=== PATIENT | male | born 1995 | race Caucasian/White ===

== ENCOUNTER 2021-12-14 09:55 | Outpatient (CLI) | payer OTHER, SELFPAY ==
--- NOTE | ~2021-12-14 | MR_ITS ---
EXAMINATION: MR wrist LT wo con DATE: 12/14/2021 10:59 INDICATION: Ulnar-sided left wrist pain TECHNIQUE: Magnetic resonance imaging (MRI) of the left wrist was performed without intravenous contr ast. Sequences performed include axial PD-weighted FSE and PD-weighted FS FSE, coronal PD-weighted FS FSE and T1-weighted SE, and sagittal PD-weighted FS FSE and PD-weighted FSE. COMPARISON: None FINDINGS: Intrinsic ligaments: The scapholunate and lunotriquetral ligaments are normal. Triangular fibrocartilage complex (TFCC): There is a small oblique tear at the radial side of the central fibrocartilaginous disc of the triang ular fibrocartilage complex. The foveal and styloid attachments as well as the dorsal and volar radio ulnar ligaments are normal. The ulnar collateral ligament, ulnotriquetral ligament and meniscal homol ogue are normal. The extensor carpi ulnaris tendon sheath is normal. Extensor wrist: Extensor tendons of the wrist are normal. No tenosynovitis. Flexor wrist: The flexor tendons of the wrist are normal. No abnormality in the carpal tunnel with normal median n erve. Guyon's canal: Guyon's canal including the ulnar nerve and artery are normal. Bones/other: Marrow edema throughout the hamate with nondisplaced fracture extending in a coronal plane across the base of the hook of the hamate. Alignment remains essentially anatomic. Otherwise normal marrow sign al throughout with no other fractures or pathologic marrow replacing process. Mild osteoarthritis at the distal radioulnar joint. Remaining joint spaces appear relatively preserved. IMPRESSION: 1. Nondisplaced fracture across the base of the hook of the hamate. 2. Small tear at the radial side of the central fibrocartilaginous disc of the triangular fibrocartil age complex which appears otherwise normal. Reviewed, dictated and finalized at location A. IMPRESSION: 1. Nondisplaced fracture across the base of the hook of the hamate. 2. Small tear at the radial side of the central fibrocartilaginous disc of the triangular fibrocartilage complex which appears otherwise normal.
== END 2021-12-14 09:56 | disposition home or self-care (01) ==
PROVIDERS: PCP Family Medicine; Visit Provider Plastic Surgery
DX: S62.155A Nondisplaced fracture of hook process of hamate [unciform] bone, left wrist, initial encounter for closed fracture (principal); X58.XXXA Exposure to other specified factors, initial encounter
CPT/HCPCS: 73221

== ENCOUNTER 2022-01-13 10:06 | Outpatient (CLI) | payer OTHER, SELFPAY ==
--- NOTE | 2022-01-13 11:30 | NEURO_ITS ---
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 # No Carpal Tunnel Syndrome or ulnar neuropathy. # Normal needle/EMG exam. # Clinical correlation recommended. Motor Nerve Conduction Upper Extremities Median Nerve Conduction Velocity (m/sec) Terminal Latency (msec) Response Voltage(mV) Elbow-Wrist Wrist Elbow Wrist Right 56 2.9 4 7 Left 60 3.0 6 3 Ulnar Nerve Conduction Velocity (m/sec) Terminal Latency (msec) Response Voltage(mV) Above Elbow Below Elbow Wrist Above Elbow Below Elbow Wrist Right 60 2.4 8 10 Left 60 2.6 5 6 F-Wave Latency Median (ms) Ulnar (ms) Right 28.4 27.8 Left 27.9 27.8 Sensory Nerve Conduction Upper Extremities Median Nerve Stimulation Terminal Latency (msec) Wrist/Digit Response Voltage (uV) Wrist Right 2.9/3.0 82/57 Left 2.7/2.7 61/58 Ulnar Nerve Stimulation Terminal Latency (msec) Wrist/Digit Response Voltage (uV) Wrist Right 2.3 65 Left 2.5 70 Radial Nerve Terminal Latency (msec) Response Voltage(mV) Right 2.1 22 Left 2.0 16 Left Right Muscles Examined Fibrillation Fasciculation Scarcity Voltage Duration Left Right Left Right Left Right Left Right Left Right Deltoid Biceps X X Brachioradialis Triceps X X Pronator Teres X X Ext Indicis X X Ext Digitorum X X Abd Poll Brev X X 1st Dorsal Interosseus Paraspinals MTDD
== END 2022-01-13 10:07 | disposition home or self-care (01) ==
LOC: ANHNEURO 10:07
PROVIDERS: PCP Family Medicine; Visit Provider Plastic Surgery
DX: R20.2 Paresthesia of skin (principal)
CPT/HCPCS: 95886; 95911

== ENCOUNTER 2024-11-19 09:47 | Outpatient (CLI) | payer OTHER, SELFPAY ==
--- NOTE | 2024-11-19 10:20 | NEURO_ITS ---
Impression: # Non- diabetic complains of pain in hands. 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 # Right Ulnar Neuropathy across the elbow. # No Carpal Tunnel Syndrome. # Normal Needle/ EMG exam. Nerve Conduction Studies ?Stim Site NR Peak (ms) P-T Amp (?V) Site1 Site2 Delta-P (ms) Dist (cm) Herminio (m/s) Left Median Anti Sensory (2-3nd Digit) Wrist ? 2.7 21.1 Wrist 2-3nd Digit 2.7 14.0 52 Wrist ? 2.8 23.6 Wrist 2-3nd Digit 2.7 14.0 52 Right Median Anti Sensory (2-3nd Digit) Wrist ? 3.1 19.5 Wrist 2-3nd Digit 3.1 14.0 45 Wrist ? 3.0 19.3 Wrist 2-3nd Digit 3.1 14.0 45 Left Radial Anti Sensory (Base 1st Digit) Wrist ? 1.8 18.9 Wrist Base 1st Digit 1.8 0.0 Right Radial Anti Sensory (Base 1st Digit) Wrist ? 2.3 17.1 Wrist Base 1st Digit 2.3 0.0 Left Ulnar Anti Sensory (5th Digit) Wrist ? 2.4 20.3 Wrist 5th Digit 2.4 14.0 58 Right Ulnar Anti Sensory (5th Digit) Wrist ? 2.3 18.6 Wrist 5th Digit 2.3 14.0 61 ?Stim Site NR Onset (ms) O-P Amp (mV) Site1 Site2 Delta-0 (ms) Dist (cm) Herminio (m/s) Left Median Motor (Abd Poll Brev) Wrist ? 2.7 1.7 Elbow Wrist 5.5 29.0 53 Elbow ? 8.2 5.4 Right Median Motor (Abd Poll Brev) Wrist ? 2.7 2.5 Elbow Wrist 5.1 27.0 53 Elbow ? 7.8 5.2 Left Ulnar Motor (Abd Dig Minimi) Wrist ? 2.2 7.8 A Elbow Wrist 5.0 30.0 60 A Elbow ? 7.2 6.6 B Elbow Wrist 4.0 24.0 60 B Elbow ? 6.2 6.6 Right Ulnar Motor (Abd Dig Minimi) Wrist ? 2.0 6.8 A Elbow Wrist 5.2 27.0 52 A Elbow ? 7.2 5.6 B Elbow Wrist 3.9 21.0 54 B Elbow ? 5.9 4.6 F Wave Studies ?NR F-Lat (ms) L-R F-Lat (ms) Left Median (Mrkrs) (Abd Poll Brev) ? 28.46 0.61 Right Median (Mrkrs) (Abd Poll Brev) ? 29.07 0.61 Left Ulnar (Mrkrs) (Abd Dig Min) ? 27.96 0.46 Right Ulnar (Mrkrs) (Abd Dig Min) ? 27.50 0.46 Electromyography ?Side Muscle Nerve Root Ins Act Fibs Amp Dur Recrt Comment Right 1stDorInt Ulnar C8-T1 Nml Nml Nml Nml Nml Right Ext Indicis Radial (Post Int) C7-8 Nml Nml Nml Nml Nml Right Ext Digitorum Radial (Post Int) C7-8 Nml Nml Nml Nml Nml Right BrachioRad Radial C5-6 Nml Nml Nml Nml Nml Right PronatorTeres Median C6-7 Nml Nml Nml Nml Nml Right Abd Poll Brev Median C8-T1 Nml Nml Nml Nml Nml Right ABD Dig Min Ulnar C8-T1 Nml Nml Nml Nml Nml Right FlexPolLong Median (Ant Int) C7-8 Nml Nml Nml Nml Nml Right Abd Poll Long Radial (Post Int) C7-8 Nml Nml Nml Nml Nml Left 1stDorInt Ulnar C8-T1 Nml Nml Nml Nml Nml Left Ext Indicis Radial (Post Int) C7-8 Nml Nml Nml Nml Nml Left Ext Digitorum Radial (Post Int) C7-8 Nml Nml Nml Nml Nml Left BrachioRad Radial C5-6 Nml Nml Nml Nml Nml Left PronatorTeres Median C6-7 Nml Nml Nml Nml Nml Left Abd Poll Brev Median C8-T1 Nml Nml Nml Nml Nml Left ABD Dig Min Ulnar C8-T1 Nml Nml Nml Nml Nml Left FlexPolLong Median (Ant Int) C7-8 Nml Nml Nml Nml Nml Left Abd Poll Long Radial (Post Int) C7-8 Nml Nml Nml Nml Nml
--- OUTSIDE RECORDS SUMMARY | 2024-11-19 11:01 | XMS_ITS | Clinical Summary ---
Author Organization [facility] Address [address] [place] [id number] Care Team Providers Care Compensation/Benefits Specialist Name Role Phone None, Provider MD Primary Care Provider Unavaila ble Social History Tobacco Use Types Packs/Day Years Used Date Smoking Tobacco: Never Assessed Sex and Gender Information Value Date Recorded Sex Assigned at Not on file Legal Sex Male 7:48 PM CDT Gender Identity Not on file Sexual Orientation Not on file Plan of Treatment Health Maintenance Due Date Last Done Comments Annual Physical 1996 Hepatitis C 2011 DTaP, Tdap and Td Vaccines ( 1 - Tdap) 2012 Hepatitis B Vaccines (1 of 3 - 19+ 3-dose series) 2012 HPV Vaccines (1 - 3-dose SCD M series) 2020 COVID-19 Vaccine (3 - 2024-2 6 season) 2024 12/23/2020, 06/13/2020 Meningococcal B Vaccine Aged Out No l onger eligible based on patient's age to complete this topic Meningococcal Vaccine Aged Out No sanjiv marine eligible based on patient's age to complete this topic Pneumococcal Vaccine: Pediatrics (0 to 5 Years) and At-Risk Patients (6 to 49 Years) Aged Out No longer eligible b ased on patient's age to complete this topic RSV Immunizations Under 20 Months Aged Out No longer eligible b ased on patient's age to complete this topic Insurance R Care Teams Compensation/Benefits Specialist Relationship Specialty Start Date End Date None, Provider, PCP - General 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
== END 2024-11-19 09:48 | disposition home or self-care (01) ==
PROVIDERS: PCP Nurse Practitioner Family; Visit Provider Physician Assistant Surgical
DX: G56.21 Lesion of ulnar nerve, right upper limb (principal); M79.642 Pain in left hand
CPT/HCPCS: 95886; 95911

== ENCOUNTER 2024-12-05 06:09 | Day surgery (SDC) | payer OTHER, SELFPAY ==
[2024-11-22 13:38] VITALS: BMI 26.6
--- OUTSIDE RECORDS SUMMARY | 2024-12-05 06:24 | XMS_ITS | Patient Health Record ---
Author Organization [facility] [employer] [facility] Address [address] [facility] [address] [place] [address] Care Team Providers Care Mail Processing Clerk Name Role Phone Silvio Toledo MD Primary Care Provider Unavailab Jl Argueta Unavailable [phone] Adriana Lind Unavailable [phone] Bri Gray Unavailable [phone] Christina Busch Unavailable [phone] Brandon Shoemaker Unavailable [phone] Morena Cadena Unavailable [phone] Allergies Allergen (clinical drug ingredient) Drug/Non Drug Allergy documented on EMR Reaction Allergy Type Onset Date Status EGG (uncoded) Unknown Allergy 07/27/2023 Activ e Shellfish (FN) SHELLFISH DERIVED (uncoded) Unknown Allergy 07/27/2023 Active Wheat WHEAT (uncoded) Unknown Allergy 07/27/2023 Act kadie Lactose Unknown Drug Allergy 07/27/2023 Active Reason For Referral No Information Medications Medication SIG (Take, Route, Frequency, Duration) Notes Start Date End Date Status hydrOXYzine HCl 10 MG Tablet 1 tablet Oral Once a day; Duration: 90 days As needed Active QUEtiapine Fumarate ER 200 MG Tablet Extended Release 24 Hour 1 tablet in the evening Orally Once a day; Duration: 90 days 08/22/2024 Active Sertraline HCl 100 MG Tablet 1 tablet every morning Oral Once a day; Duration: 90 days Active Spravato (84 MG Dose) 28 MG/DEVICE Solution Therapy Pack 3 sprays in each nostril Nasal once a week; Duration: 1 days [facility] want them to get spravato from [facility] 10/17/2024 Active buPROPion HCl ER (XL) 300 MG Tablet Extended Release 24 Hour 1 tablet in the morning Orally Once a day; Duration: 90 days Active Melatonin 10 MG Capsule 1 tablet at bedtime as needed Orally Once a day 10/06/2023 Active Multivitamin - Tablet 1 tablet Orally Once a day 10/26/2023 Active QUEtiapine Fumarate 200 MG Tablet 1 tablet at bedtime Oral Once a day; Duration: 90 days Active Benadryl PRN 10/06/2023 Active Omeprazole *[facility]* 07/27/2023 Active Social History Tobacco Use: Social History Observation Description Date Details (start date - stop date) Current Smoker 01/11/2013 - NA Sex Assigned At : Social History Observation Description Sex Assigned At Male Social History Miscellaneous: Social Info Question Answer Notes Advance Care Planning Are you your own decision-maker Yes Do you have Power of [facility] or [facility]? No Safety issues: Are there any firearms in the house? No Social History Social Info Question Answer Notes Household: Level of Education: Finished High School Marital Status: Single Number of Adults in household: 3 Number of Children in Household: 0 Latter Day: add to notes Family Yearly Income: use notes section Household: Social Info Question Answer Notes Household Marital status: single Number of adults in household: amy bailey lives with his grandparents. Drug/Alcohol: Social Info Question Answer Notes Drugs Have you used drugs other than those for medical reasons in the past 12 months? No Methamphetamine? No Crack? No LSD? No Ecstacy? No Prescription opiates? No Marijuana? Yes Ketamine? No PCP? No Is there a minor (18 years or younger) at risk at home? No Are you still using? Yes Do you want treatment? No AUDIT-C (Standard) Did you have a drink containing alc ohol in the past year? No How often did you have six or more drinks on one occasion in the past year? Less than monthly (1 point) How many drinks did you have on a typical day when you were drinking in the past year? 1 or 2 drinks (0 point) How often did you have a drink containing alcohol in the past year? Monthly or less (1 point) Tobacco Use: Social Info Question Answer Notes Tobacco Control (Standard) When did you start smoking? 01/11/2013 How often do you smoke cigarettes? Every day How many cigarettes a day do you smoke? 11-20 How soon after you wake up do you smoke your first cigarette? After 60 minutes Are you interested in quitting? Not ready to quit Tobacco use: Current smoker When did you start smoking? 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 Adm its to smoking a marijuana vape. One cartridge lasts > 6 months. Section Notes: one PPD on and off since i was 16 one PPD on and off since i was 16 one PPD on and off since i was 16 one PPD on and off since i was 16 one PPD on and off since i was 16 one PPD on and off since i was 16 one PPD on and off since i was 16 one PPD on and off since i was 18 one PPD on and off since i was 18 one PPD on and off since i was 18 one PPD on and off since i was 18 one PPD on and off since i was 18 one PPD on and off since i was 18 one PPD on and off since i was 18 one PPD on and off since i was 18 one PPD on and off since i was 18 one PPD on and off since i was 18 one PPD on and off since i was 18 one PPD on and off since i was 18 one PPD on and off since i was 18 one PPD on and off since i was 18 one PPD on and off since i was 18 one PPD on and off since i was 18 one PPD on and off since i was 18 one PPD on and off since i was 18 one PPD on and off since i was 18 one PPD on and off since i was 16 one PPD on and off since i was 16 one PPD on and off since i was 16 one PPD on and off since i was 16 one PPD on and off since i was 16 one PPD on and off since i was 16 one PPD on and off since i was 16 one PPD on and off since i was 16 one PPD on and off since i was 16 one PPD on and off since i was 16 Problems Problem Type SNOMED Code ICD Code Onset Dates Problem Status W/U Status Risk Notes Problem Vitamin D deficiency (83934087) Vitamin D deficiency, unspecified (E55.9) Active confirmed Problem Severe recurrent major depression without psychotic features (48228545) Major depressive disorder, recurrent severe without psychotic features (F33.2) Active confirmed Problem Generalized anxiety disorder (09426970) Generalized anxiety disorder (F41.1) Active confirmed Problem Primary insomnia (2094753) Primary insomnia (F51.01) Active confirmed Problem Attention deficit hyperactivity disorder (602667804) Attention-deficit hyperactivity disorder, unspecified type (F90.9) Active confirmed Problem Screening for cardiovascular system disease (269747174) Encounter for screening for cardiovascular disorders (Z13.6) Active confirmed Problem Depression Screening (599210824) Encounter for screening for depression (Z13.31) Active confirmed Problem Generalized anxiety disorder (59530128) RIA (generalized anxiety disorder) (F41.1) Active confirmed Problem Insomnia (820476718) Insomnia, unspecified type (G47.00) Active confirmed Problem Tobacco use (282397553) Nicotine use (Z72.0) Active confirmed Problem Feeling suicidal (964242845) Passive suicidal ideations (R45.851) Active confirmed Vital Signs Heart Rate 102 /min 11/21/2024 Oximetry 98 % 11/21/2024 Height-cm 170.18 cm 11/21/2024 Blood pressure diastolic 88 mm Hg 11/21/2024 Weight-kg 77.57 kg 08/22/2024 Height 67.00 in 11/21/2024 Blood pressure systolic 133 mm Hg 11/21/2024 Weight 171 lbs 08/22/2024 BMI 26.78 kg/m2 08/22/2024 Encounters Encounter Location Date Provider Diagnosis [facility] [address] [address] 12/07/2023 Brandon Shoemaker Major depressive disorder, recurrent severe without psychotic features F33.2 and Suicidal thoughts R45.851 [facility] [place] [address] [facility] [address] [place] [address] 12/12/2023 Christina Busch Major depressive disorder, recurrent severe without psychotic features F33.2 ; Generalized anxiety disorder F41.1 and Attention-deficit hyperactivity disorder, unspecified type F90.9 [facility] [address] [place] [address] [place] [address] 12/14/2023 Brandon Clubb Major depressive disorder, recurrent severe without psychotic features F33.2 and Suicidal thoughts R45.851 [facility] [place] [address] [place] [address] [place] [address] 12/19/2023 Christina Hinderliter Major depressive disorder, recurrent severe without psychotic features F33.2 ; Generalized anxiety disorder F41.1 and Attention-deficit hyperactivity disorder, unspecified type F90.9 [facility] [address] [place] [address] [place] [address] 12/21/2023 Brandon Clubb Major depressive disorder, recurrent severe without psychotic features F33.2 and Suicidal thoughts R45.851 [facility] [place] [address] [place] [address] [place] [address] 12/26/2023 Christina Hinderliter Major depressive disorder, recurrent severe without psychotic features F33.2 ; Generalized anxiety disorder F41.1 and Attention-deficit hyperactivity disorder, unspecified type F90.9 [facility] [address] [place] [address] [place] [address] 12/28/2023 Brandon Clubb Major depressive disorder, recurrent severe without psychotic features F33.2 ; Passive suicidal ideations R45.851 and Nicotine use Z72.0 [facility] [place] [address] [place] [address] [place] [address] 01/02/2024 Christina Hinderliter Major depressive disorder, recurrent severe without psychotic features F33.2 ; Generalized anxiety disorder F41.1 and Attention-deficit hyperactivity disorder, unspecified type F90.9 [facility] [address] [place] [address] [place] [address] 01/04/2024 Brandon Clubb Major depressive disorder, recurrent severe without psychotic features F33.2 ; Passive suicidal ideations R45.851 and Nicotine use Z72.0 [facility] [address] [place] [address] [place] [address] 01/11/2024 Brandon Clubb Major depressive disorder, recurrent severe without psychotic features F33.2 ; Nicotine use Z72.0 and Passive suicidal ideations R45.851 [facility] [place] [address] [place] [address] [place] [address] 01/16/2024 Christina Hinderliter Major depressive disorder, recurrent severe without psychotic features F33.2 ; Generalized anxiety disorder F41.1 and Attention-deficit hyperactivity disorder, unspecified type F90.9 [facility] [facility] [address] [place] [address] [place] [address] 01/18/2024 Brandon Clubb Major depressive disorder, recurrent severe without psychotic features F33.2 and Passive suicidal ideations R45.851 [facility] [employer] [facility], [place] [address] [place] [address] [place] [address] 01/23/2024 Christina Hinderliter [facility] [facility] [address] [place] [address] [place] [address] 01/24/2024 Jl Montalvo Major depressive disorder, recurrent severe without psychotic features F33.2 and Generalized anxiety disorder F41.1 [facility] [address] [place] [address] [place] [address] 01/25/2024 Brandon Clubb Major depressive disorder, recurrent severe without psychotic features F33.2 and Passive suicidal ideations R45.851 [facility], [place] [address] [place] [address] 01/30/2024 Christina Hinderliter Major depressive disorder, recurrent severe without psychotic features F33.2 ; Generalized anxiety disorder F41.1 ; Attention-deficit hyperactivity disorder, unspecified type F90.9 and Passive suicidal ideations R45.851 [facility] [employer] [facility] [address] [place] [address] 02/05/2024 Brandon Clubb Major depressive disorder, recurrent severe without psychotic features F33.2 ; Passive suicidal ideations R45.851 and Nicotine use Z72.0 [facility] [employer] [facility], [place] [address] [place] [address] 02/06/2024 Christina Hinderliter Major depressive disorder, recurrent severe without psychotic features F33.2 ; Generalized anxiety disorder F41.1 and Attention-deficit hyperactivity disorder, unspecified type F90.9 [facility] [employer] [facility], [place] [address] [place] [address] 02/13/2024 Christina Hinderliter Major depressive disorder, recurrent severe without psychotic features F33.2 ; Generalized anxiety disorder F41.1 and Attention-deficit hyperactivity disorder, unspecified type F90.9 [facility] [address] [place] [address] 02/14/2024 Brandon Clubb Passive suicidal ideations R45.851 and Major depressive disorder, recurrent severe without psychotic features F33.2 [facility], [place] [address] [place] [address] 02/20/2024 Christina Narayan Major depressive disorder, recurrent severe without psychotic features F33.2 and Generalized anxiety disorder F41.1 [facility] [address] [place] [address] [place] [address] 02/26/2024 Bri Gray Major depressive disorder, recurrent severe without psychotic features F33.2 [facility] [address] [place] [address] 03/14/2024 Brandon Clubb Major depressive disorder, recurrent severe without psychotic features F33.2 and Passive suicidal ideations R45.851 [facility] [address] [address] [place] [address] 03/25/2024 Brandon Clubb Major depressive disorder, recurrent severe without psychotic features F33.2 [facility] [address] [place] [place] [address] 04/11/2024 Jl Katia Major depressive disorder, recurrent severe without psychotic features F33.2 and Passive suicidal ideations R45.851 [facility] [address] [place] [address] [place] [address] 04/23/2024 Brandon Clubb Major depressive disorder, recurrent severe without psychotic features F33.2 and Passive suicidal ideations R45.851 [facility] [address] [place] [address] 04/29/2024 Jl Katia Major depressive disorder, recurrent severe without psychotic features F33.2 ; Generalized anxiety disorder F41.1 and RIA (generalized anxiety disorder) F41.1 [facility] [employer], [facility] [address] [place] [place] [address] 05/09/2024 Brandon Clubb Major depressive disorder, recurrent severe without psychotic features F33.2 ; Passive suicidal ideations R45.851 and Nicotine use Z72.0 [facility] [place] [address] [place] [address] [place] [address] 05/23/2024 Brandon Clubb Major depressive disorder, recurrent severe without psychotic features F33.2 ; Passive suicidal ideations R45.851 and [facility] Z72.0 [facility] [place] [address] [facility] [address] [facility] [address] [place] [address] 06/06/2024 Brandon Clubb Major depressive disorder, recurrent severe without psychotic features F33.2 ; Encounter for screening for cardiovascular disorders Z13.6 ; Encounter for screening for depression Z13.31 ; Passive suicidal ideations R45.851 and Nicotine use Z72.0 [facility] [address] [facility] [address] [place] [address] 06/13/2024 Adriana Lind Major depressive disorder, recurrent severe without psychotic features F33.2 ; Generalized anxiety disorder F41.1 ; Nicotine use Z72.0 and Encounter for screening for depression Z13.[address] [facility] [address] [place] [address] 06/20/2024 Brandon Clubb Major depressive disorder, recurrent severe without psychotic features F33.2 ; Passive suicidal ideations R45.851 and Encounter for screening for cardiovascular disorders Z13.6 [facility] [address] [facility] [address] [place] [address] 06/27/2024 Adriana Lind Encounter for screening for depression Z13.31 ; Major depressive disorder, recurrent severe without psychotic features F33.2 ; Nicotine use Z72.0 and Generalized anxiety disorder F41.1 [facility] [employer] [facility] [address] [place] [address] 07/04/2024 Morena Cadena Major depressive disorder, recurrent severe without psychotic features F33.2 ; Encounter for screening for cardiovascular disorders Z13.6 and Encounter for screening for depression Z13.31 [facility] [address] [facility] [address] [place] [address] 07/11/2024 Adriana Lind Encounter for screening for depression Z13.31 ; Major depressive disorder, recurrent severe without psychotic features F33.2 and Generalized anxiety disorder F41.1 [facility] [place] [address] [facility] [address] [place] [address] 07/18/2024 Brandon Clubb Major depressive disorder, recurrent severe without psychotic features F33.2 ; Passive suicidal ideations R45.851 ; Generalized anxiety disorder F41.1 ; Attention-deficit hyperactivity disorder, unspecified type F90.9 ; Nicotine use Z72.0 ; Encounter for screening for depression Z13.31 and Encounter for screening for cardiovascular disorders Z13.6 [facility] [place] [address] [facility] [address] [place] [address] 07/25/2024 Adriana Lind Encounter for screening for depression Z13.31 ; Major depressive disorder, recurrent severe without psychotic features F33.2 ; Nicotine use Z72.0 and Generalized anxiety disorder F41.1 [facility] [address] [facility] [address] [place] [address] 08/01/2024 Brandon Clubb Major depressive disorder, recurrent severe without psychotic features F33.2 ; Encounter for screening for cardiovascular disorders Z13.6 ; Encounter for screening for depression Z13.31 ; Generalized anxiety disorder F41.1 ; Attention-deficit hyperactivity disorder, unspecified type F90.9 ; Passive suicidal ideations R45.851 and Dietary counseling and surveillance Z71.3 [facility] [place] [address] [facility] [address] [place] [address] 08/15/2024 Brandon Clubb Major depressive disorder, recurrent severe without psychotic features F33.2 and Encounter for screening for cardiovascular disorders Z13.6 [facility] [address] [address] 08/22/2024 Jl Montalvo Major depressive disorder, recurrent severe without psychotic features F33.2 ; Generalized anxiety disorder F41.1 ; RIA (generalized anxiety disorder) F41.1 ; Encounter for screening for cardiovascular disorders Z13.6 ; Nicotine use Z72.0 ; Encounter for screening for depression Z13.31 and Primary insomnia F51.01 [facility] [place] [address] [facility] [address] [place] [address] 08/29/2024 Brandon Clubb Major depressive disorder, recurrent severe without psychotic features F33.2 ; RIA (generalized anxiety disorder) F41.1 ; Nicotine use Z72.0 ; Passive suicidal ideations R45.851 ; Encounter for screening for depression Z13.31 ; Insomnia, unspecified type G47.00 and Encounter for screening for cardiovascular disorders Z13.6 [facility] [address] [place] [place] [address] 09/19/2024 Brandon Clubb Major depressive disorder, recurrent severe without psychotic features F33.2 ; RIA (generalized anxiety disorder) F41.1 ; Nicotine use Z72.0 and Insomnia, unspecified type G47.00 [facility] [address] [place] [place] [address] 09/26/2024 Brandon Clubb Major depressive disorder, recurrent severe without psychotic features F33.2 ; RIA (generalized anxiety disorder) F41.1 ; Nicotine use Z72.0 and Insomnia, unspecified type G47.00 [facility] [address] [place] [address] 10/10/2024 Brandon Clubb Major depressive disorder, recurrent severe without psychotic features F33.2 ; RIA (generalized anxiety disorder) F41.1 ; Nicotine use Z72.0 and Insomnia, unspecified type G47.00 [place] [address] [place] [address] 10/31/2024 Brandon Clubb Major depressive disorder, recurrent severe without psychotic features F33.2 ; RIA (generalized anxiety disorder) F41.1 ; Nicotine use Z72.0 and Insomnia, unspecified type G47.00 [facility] [address] [place] [address] 11/21/2024 Brandon Clubb Major depressive disorder, recurrent severe without psychotic features F33.2 [place] [address] [facility] [address] [place] [address] 12/12/2023 [facility] [address] [place] [place] [address] 01/17/2024 Brandon Clubb Major depressive disorder, recurrent severe without psychotic features F33.2 [facility], [place] [address] [place] [address] 01/17/2024 Brandon Clubb Major depressive disorder, recurrent severe without psychotic features F33.2 [place] [address] [place] [address] 03/21/2024 [facility] [address] [place] [address] 03/25/2024 Brandon Clubb Major depressive disorder, recurrent severe without psychotic features F33.2 [facility], [facility] [address] [place] [address] 07/18/2024 Jl Katia Major depressive disorder, recurrent severe without psychotic features F33.2 [facility], [facility] [address] [place] [address] 10/17/2024 Jl Katia Major depressive disorder, recurrent severe without psychotic features F33.2 [facility], [facility] [address] [place] [address] 10/21/2024 Jl Katia [facility], [facility] [address] [place] [address] 11/22/2024 Jl Katia Major depressive disorder, recurrent severe without psychotic features F33.2 [facility], [facility] [address] [place] [address] 04/17/2024 Jl Katia Generalized anxiety disorder F41.1 [facility], [facility] [address] [place] [address] 05/25/2024 Jl Katia Major depressive disorder, recurrent severe without psychotic features F33.2 [facility], [facility] [address] [place] [address] 06/01/2024 Jl Katia Major depressive disorder, recurrent severe without psychotic features F33.2 [facility], [facility] [address] [place] [address] 06/04/2024 Jl Katia Major depressive disorder, recurrent severe without psychotic features F33.2 [facility], [facility] [address] [place] [address] 08/06/2024 Jl Katia Major depressive disorder, recurrent severe without psychotic features F33.2 [facility], [facility] [address] [place] [address] 08/21/2024 Jl Katia Major depressive disorder, recurrent severe without psychotic features F33.2 [facility], [facility] [address] [place] [address] 08/30/2024 Jl Katia [facility], [facility] [address] [place] [address] 09/02/2024 Jl Katia [facility], [facility] [address] [place] [address] 09/03/2024 Jl Katia Major depressive disorder, recurrent severe without psychotic features F33.2 [facility], [facility] [address] [place] [address] 09/03/2024 Jl Katia Major depressive disorder, recurrent severe without psychotic features F33.2 [facility], [facility] [address] [facility] [address] [place] [address] 10/31/2024 Jl Katia [facility], [facility] [address] [place] [address] [place] [address] 10/31/2024 Jl Katia [facility], [facility] [address] [facility] [address] [place] [address] 10/31/2024 Jl Katia [facility], [facility] [address] [facility] [address] [place] [address] 11/22/2024 Jl Katia Major depressive disorder, recurrent severe without psychotic features F33.2 [facility], [facility] [address] [address] 11/22/2024 Jl Katia Generalized anxiety disorder F41.1 Assessments Encounter Date Diagnosis (ICD Code) Assessment Notes Treatment Notes Treatment Clinical Notes Section Notes 10/17/2024 Major depressive disorder, recurrent severe without 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 - F33.2) 07/18/2024 Major depressive disorder, recurrent severe without 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 - F33.2) 03/25/2024 Major depressive disorder, recurrent severe without 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 - F33.2) 01/17/2024 Major depressive disorder, recurrent severe without 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 - F33.2) 10/10/2024 Major depressive disorder, recurrent severe without 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 - F33.2) continue current treatment as prescribed by primary psychiatric care provider 09/19/2024 Major depressive disorder, recurrent severe without 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 - F33.2) continue current treatment as prescribed by primary psychiatric care provider 10/31/2024 Major depressive disorder, recurrent severe without 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 - F33.2) continue current treatment as prescribed by primary psychiatric care provider 12/19/2023 Major depressive disorder, recurrent severe without 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 - F33.2) 1. Adjustment to Work Stressors - Continue focusing on aspects of work stress that are within control and strive for emotional balance. - Encourage pacing oneself and taking breaks as needed to prevent burnout. - Promote open communication with coworkers and supervisors to address concerns and seek support. 2. Depression and Anxiety Management - Continue engaging in self-care activities such as reading and playing video games with friends to manage work stress impact on mental health. - Monitor mood and anxiety levels in future sessions. - Practice mindfulness techniques and reflect on positive aspects of the day to enhance mental well-being. 3. Self-Esteem and Self-Acknowledgme nt - Practice daily gratitude and self-acknowledgme nt, focusing on genuine accomplishments and positive events. - Discuss the importance of healthy pride in building self-esteem. - Create a list of accomplishments and positive events to refer to when feeling overwhelmed or doubtful. 4. Therapy Engagement and Goal Setting - Encourage the creation of a list of topics for discussion to bring to future therapy sessions. - Recommend using a phone or other easily accessible methods for documenting topics and concerns. - Continue monitoring progress and adjust the treatment plan as necessary. Follow-up: -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 foster a supportive work environment and boost mental health. - Celebrate team successes and milestones through team-building activities or recognition of individual achievements. Follow-up: - Schedule a follow-up appointment in two weeks to review progress and address any ongoing concerns. 01/02/2024 Generalized anxiety disorder (ICD-10 - F41.1) Assessment and Plan: 1. Occupational Stress - The patient is experiencing significant stress at work due to staffing issues and additional responsibilities. Efforts are being made to address these challenges and manage stress levels. Plan: - Continue advocating for the team and communicating with management to resolve staffing concerns. - Pace work activities and delegate tasks to prevent burnout. - Implement self-care strategies at home, including preparing easy meals and engaging in relaxing activities. 2. Carpal Tunnel Syndrome - The patient reports hand pain and numbness, affecting work and daily activities. Surgery has been delayed due to work-related staffing concerns. Plan: - Prioritize scheduling the surgery to improve quality of life and work capability. - Discuss with management about temporary work accommodations during the recovery period. 3. Depression - The patient is engaged in therapy and psychiatric care, adhering to medication regimens and undergoing Spravato treatments. Plan: - Continue with therapy and psychiatric appointments. - Support the practice of skills learned in therapy, such as noting daily positive events and practicing gratitude. - Integrate new habits into existing routines to enhance consistency, e.g., writing a positive list post-dinner. 4. Anxiety Related to Punctuality and Transportation - Recent purchase of a new vehicle to address reliability and navigation concerns has alleviated some anxiety related to punctuality and transportation. Plan: - Ensure the new vehicle is promptly repaired and registered for safe and reliable use. - Recognize the vehicle purchase as a positive step and reward for hard work. 5. Team Morale and Workplace Relationships - The patient is proactive in creating a positive work environment and strengthening team relationships, showing support and advocacy for team members. Plan: - Maintain and enhance positive relationships with team members to foster a supportive work environment and boost mental health. - Celebrate team successes and milestones through team-building activities or recognition of individual achievements. Follow-up: - Schedule a follow-up appointment in two weeks to review progress and address any ongoing concerns. 12/28/2023 Passive suicidal ideations (ICD-10 - R45.851) 1. Depression - Patient rates depression as 2/10. - No significant mood/depressive symptom changes reported. - Plan: a. Continue current antidepressant medication regimen. b. Monitor for mood/depressive symptom changes. c. Encourage regular physical activity and healthy sleep schedule. d. continue therapy 2. Anxiety - Patient rates anxiety as 2/10. - No significant anxiety symptom changes reported. - Plan: a. Continue current anxiolytic medication regimen. b. Monitor for anxiety symptom changes. c. Encourage relaxation techniques like deep breathing and mindfulness meditation. d. continue therapy 3. Suicidal Ideation - Patient reports daily suicidal/self-sanya m thoughts. - Plan: a. Assess suicide risk, including lethal means access and protective factors. b. continue therapy to address suicidal ideation. c. Consider medication adjustments/addit ions for suicidal thoughts. d. Develop safety plan with emergency contacts and coping strategies. 4. Sleep - Patient reports 5-6 hours of sleep per night. - Plan: a. Assess for potential sleep disorders like insomnia or sleep apnea. b. Encourage good sleep hygiene with consistent schedule and bedtime routine. c. Consider short-term sleep aid if necessary. 5. Physical Complaints - No physical complaints reported. - Plan: a. Encourage reporting new/worsening physical symptoms. b. Continue monitoring overall health and well-being. 6. Psychotic Symptoms - No hallucinations, paranoia, or delusions reported. - Plan: a. Continue monitoring for psychotic symptom emergence. b. Adjust treatment plan if psychotic symptoms develop. 7. Appetite - Patient's appetite response not provided. - Plan: a. Follow up on appetite at next visit to ensure proper nutrition. b. Monitor for significant weight/eating habit changes. 8. Homicidal Ideation - Patient's response on thoughts of hurting others not provided. - Plan: a. Follow up on this at next visit to ensure safety. b. Develop safety measures/interven tions if concerns arise. 12/26/2023 Major depressive disorder, recurrent severe without 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 - F33.2) 1. Work-related stress - Encourage the patient to engage in self-care activities during days off, such as reading or pursuing hobbies. - Discuss the importance of setting realistic expectations and goals at work. - Encourage the patient to communicate with his team and leadership about his capabilities and limitations. 2. Difficulty practicing gratitude - Continue to encourage the patient to practice gratitude by listing positive experiences and accomplishments. - Recommend setting reminders or establishing a routine to incorporate gratitude practice into daily life. 3. Self-criticism and high expectations - Discuss the importance of self-compassion and accommodating oneself based on individual strengths and limitations. - Encourage the patient to assess his energy levels daily and set realistic goals accordingly. 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 Follow-up: - Schedule a follow-up appointment for next Monday to continue addressing the patient's concerns and progress. - Monitor the patient's progress in practicing gratitude, managing work-related stress, and reducing self-criticism. 12/26/2023 Generalized anxiety disorder (ICD-10 - F41.1) 1. Work-related stress - Encourage the patient to engage in self-care activities during days off, such as reading or pursuing hobbies. - Discuss the importance of setting realistic expectations and goals at work. - Encourage the patient to communicate with his team and leadership about his capabilities and limitations. 2. Difficulty practicing gratitude - Continue to encourage the patient to practice gratitude by listing positive experiences and accomplishments. - Recommend setting reminders or establishing a routine to incorporate gratitude practice into daily life. 3. Self-criticism and high expectations - Discuss the importance of self-compassion and accommodating oneself based on individual strengths and limitations. - Encourage the patient to assess his energy levels daily and set realistic goals accordingly. 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 Follow-up: - Schedule a follow-up appointment for next Monday to continue addressing the patient's concerns and progress. - Monitor the patient's progress in practicing gratitude, managing work-related stress, and reducing self-criticism. 05/09/2024 Major depressive disorder, recurrent severe without 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 - F33.2) continue current treatment as prescribed by primary psychiatric care provider. make an appt to see therapist. 04/23/2024 Major depressive disorder, recurrent severe without 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 - F33.2) 04/23/2024 Passive suicidal ideations (ICD-10 - R45.851) 04/17/2024 Generalized anxiety disorder (ICD-10 - F41.1) 02/06/2024 Major depressive disorder, recurrent severe without 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 - F33.2) 1. Lower Back Pain - Encourage the patient to adopt proper lifting techniques and to seek assistance when handling heavy objects to prevent further injury. - Recommend the use of [id number] pain relievers as necessary to manage discomfort. - Suggest engaging in gentle stretching and strengthening exercises to enhance back health and prevent future incidents. 2. ADHD - Continue with the current medication regimen prescribed for ADHD management. - Encourage the establishment and adherence to a structured daily routine to improve focus and reduce restlessness. - Recommend the exploration of relaxation techniques, including deep breathing exercises and mindfulness meditation, to aid in relaxation and concentration. 3. Depression - Continue the administration of Spravato as directed for depression treatment. - Monitor the patient's mood and medication efficacy during subsequent appointments. - Encourage participation in activities that contribute to mental well-being, such as quality time with family, reading, and engaging in hobbies like video games. 4. Family Support - Encourage open communication with family members regarding their needs and the patient's mental health during his mother's post-surgery recovery period. - Suggest looking into local resources for additional support if necessary during this time. 5. Mental Health Awareness and Stigma Reduction - Encourage the patient to persist in initiating conversations about mental health with peers, family, and healthcare professionals to foster understanding and reduce stigma. - Recommend joining support groups or online forums to connect with individuals facing similar challenges and experiences. Follow-up: - Schedule a follow-up appointment to assess the patient's progress and address any new or ongoing concerns. 02/06/2024 Generalized anxiety disorder (ICD-10 - F41.1) 1. Lower Back Pain - Encourage the patient to adopt proper lifting techniques and to seek assistance when handling heavy objects to prevent further injury. - Recommend the use of [id number] pain relievers as necessary to manage discomfort. - Suggest engaging in gentle stretching and strengthening exercises to enhance back health and prevent future incidents. 2. ADHD - Continue with the current medication regimen prescribed for ADHD management. - Encourage the establishment and adherence to a structured daily routine to improve focus and reduce restlessness. - Recommend the exploration of relaxation techniques, including deep breathing exercises and mindfulness meditation, to aid in relaxation and concentration. 3. Depression - Continue the administration of Spravato as directed for depression treatment. - Monitor the patient's mood and medication efficacy during subsequent appointments. - Encourage participation in activities that contribute to mental well-being, such as quality time with family, reading, and engaging in hobbies like video games. 4. Family Support - Encourage open communication with family members regarding their needs and the patient's mental health during his mother's post-surgery recovery period. - Suggest looking into local resources for additional support if necessary during this time. 5. Mental Health Awareness and Stigma Reduction - Encourage the patient to persist in initiating conversations about mental health with peers, family, and healthcare professionals to foster understanding and reduce stigma. - Recommend joining support groups or online forums to connect with individuals facing similar challenges and experiences. Follow-up: - Schedule a follow-up appointment to assess the patient's progress and address any new or ongoing concerns. 02/05/2024 Major depressive disorder, recurrent severe without 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 - F33.2) continue current treatment as prescribed by primary psychiatric care provider. 1. Depression - Patient rates depression as 3/10. - Plan: a. Continue current treatment and monitor progress. b. Encourage engagement in activities to alleviate depressive symptoms (exercise, socializing, maintaining healthy sleep schedule). 2. Anxiety - Patient rates anxiety as 1/10. - Plan: a. Continue current treatment and monitor progress. b. Encourage practice of relaxation techniques (deep breathing exercises, mindfulness meditation). 3. Suicidal Ideation - Patient reports suicidal thoughts but denies plan or intent. - Patient denies thoughts of hurting others. - Plan: a. Continue to monitor patient's mental status closely. b. Encourage open communication about feelings and thoughts. c. Provide resources for crisis support (hotline numbers, [facility]). 4. Sleep Disturbance - Patient reports getting 4-7 hours of sleep per night. - Plan: a. Encourage consistent sleep schedule and good sleep hygiene. b. Recommend creating a relaxing bedtime routine. c. Advise avoiding stimulants close to bedtime. d. Monitor sleep patterns and consider further evaluation if disturbances persist. 5. Medication Management - Patient reports no changes in medications. - Plan: a. Continue current medications as prescribed. b. Monitor for side effects or changes in mental/physical health. 6. Other Symptoms - Patient denies hallucinations, delusions, or paranoia. - Patient reports normal appetite. - Plan: a. Continue monitoring for any changes in symptoms. 02/05/2024 Passive suicidal ideations (ICD-10 - R45.851) 1. Depression - Patient rates depression as 3/10. - Plan: a. Continue current treatment and monitor progress. b. Encourage engagement in activities to alleviate depressive symptoms (exercise, socializing, maintaining healthy sleep schedule). 2. Anxiety - Patient rates anxiety as 1/10. - Plan: a. Continue current treatment and monitor progress. b. Encourage practice of relaxation techniques (deep breathing exercises, mindfulness meditation). 3. Suicidal Ideation - Patient reports suicidal thoughts but denies plan or intent. - Patient denies thoughts of hurting others. - Plan: a. Continue to monitor patient's mental status closely. b. Encourage open communication about feelings and thoughts. c. Provide resources for crisis support (hotline numbers, [facility]). 4. Sleep Disturbance - Patient reports getting 4-7 hours of sleep per night. - Plan: a. Encourage consistent sleep schedule and good sleep hygiene. b. Recommend creating a relaxing bedtime routine. c. Advise avoiding stimulants close to bedtime. d. Monitor sleep patterns and consider further evaluation if disturbances persist. 5. Medication Management - Patient reports no changes in medications. - Plan: a. Continue current medications as prescribed. b. Monitor for side effects or changes in mental/physical health. 6. Other Symptoms - Patient denies hallucinations, delusions, or paranoia. - Patient reports normal appetite. - Plan: a. Continue monitoring for any changes in symptoms. 01/30/2024 Major depressive disorder, recurrent severe without 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 - F33.2) 1. Insomnia - Monitor the patient's sleep patterns and adjust the nightly routine as needed to improve sleep quality. - If sleep disturbances persist, consider conducting a sleep study, including at-home options, to further evaluate the patient's sleep issues. - Advise the patient to maintain a consistent sleep schedule and reduce caffeine consumption in the evenings to facilitate better sleep. 2. Work-related Stress and Burnout - Encourage the patient to establish boundaries and manage emotional pacing when interacting with management to prevent burnout. - Highlight the importance of self-care and the need for taking breaks, including vacations or long weekends, to focus on personal well-being and relaxation. - Discuss strategies for the patient to find balance and gratification in their role, while also protecting their mental health from the stresses of management. 3. Anxiety - Recommend practices such as savoring and mindfulness to help the patient enjoy and be present during leisure activities, reducing anxiety related to work. - Suggest sharing positive experiences with friends or family to enhance and prolong positive emotions during time off. - Continue to monitor the patient's anxiety levels and explore additional therapeutic interventions if anxiety persists or worsens, especially in relation to work transitions and the Monday scaries. Follow-up: - Schedule a follow-up appointment to assess the patient's progress in managing insomnia, work-related stress, burnout, and anxiety, and adjust the care plan as necessary. 01/30/2024 Generalized anxiety disorder (ICD-10 - F41.1) 1. Insomnia - Monitor the patient's sleep patterns and adjust the nightly routine as needed to improve sleep quality. - If sleep disturbances persist, consider conducting a sleep study, including at-home options, to further evaluate the patient's sleep issues. - Advise the patient to maintain a consistent sleep schedule and reduce caffeine consumption in the evenings to facilitate better sleep. 2. Work-related Stress and Burnout - Encourage the patient to establish boundaries and manage emotional pacing when interacting with management to prevent burnout. - Highlight the importance of self-care and the need for taking breaks, including vacations or long weekends, to focus on personal well-being and relaxation. - Discuss strategies for the patient to find balance and gratification in their role, while also protecting their mental health from the stresses of management. 3. Anxiety - Recommend practices such as savoring and mindfulness to help the patient enjoy and be present during leisure activities, reducing anxiety related to work. - Suggest sharing positive experiences with friends or family to enhance and prolong positive emotions during time off. - Continue to monitor the patient's anxiety levels and explore additional therapeutic interventions if anxiety persists or worsens, especially in relation to work transitions and the Monday scaries. Follow-up: - Schedule a follow-up appointment to assess the patient's progress in managing insomnia, work-related stress, burnout, and anxiety, and adjust the care plan as necessary. 01/25/2024 Major depressive disorder, recurrent severe without 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 - F33.2) 1. Depression - Patient rates depression as 1 out of 10. - No recent changes in medication. - Plan: a. Continue current treatment and monitor progress. b. Encourage patient to engage in activities that promote mental well-being. 2. Anxiety - Patient rates anxiety as 1 out of 10. - No recent changes in medication. - Plan: a. Continue current treatment and monitor progress. b. Encourage patient to practice relaxation techniques and stress management. 3. Suicidal ideation - Patient reports daily thoughts of self-harm. - patient is wearing a t-shirt that says 'live, laugh, toaster bath'. - Patient denies thoughts of hurting others. - Plan: a. Assess patient's risk factors and protective factors for suicide. b. Develop a safety plan with the patient. c. continue therapy services. 4. Sleep - Patient reports getting 5-6 hours of sleep per night. - Plan: a. Encourage patient to practice good sleep hygiene. b. Assess for potential sleep disorders if sleep does not improve. 5. Appetite - Patient reports normal appetite. - Plan: a. Encourage patient to maintain a balanced diet. b. Monitor appetite during follow-up appointments. 01/25/2024 Passive suicidal ideations (ICD-10 - R45.851) safety plan in place discussed crisis hotline and when to seek emergency services. 1. Depression - Patient rates depression as 1 out of 10. - No recent changes in medication. - Plan: a. Continue current treatment and monitor progress. b. Encourage patient to engage in activities that promote mental well-being. 2. Anxiety - Patient rates anxiety as 1 out of 10. - No recent changes in medication. - Plan: a. Continue current treatment and monitor progress. b. Encourage patient to practice relaxation techniques and stress management. 3. Suicidal ideation - Patient reports daily thoughts of self-harm. - patient is wearing a t-shirt that says 'live, laugh, toaster bath'. - Patient denies thoughts of hurting others. - Plan: a. Assess patient's risk factors and protective factors for suicide. b. Develop a safety plan with the patient. c. continue therapy services. 4. Sleep - Patient reports getting 5-6 hours of sleep per night. - Plan: a. Encourage patient to practice good sleep hygiene. b. Assess for potential sleep disorders if sleep does not improve. 5. Appetite - Patient reports normal appetite. - Plan: a. Encourage patient to maintain a balanced diet. b. Monitor appetite during follow-up appointments. 01/24/2024 Major depressive disorder, recurrent severe without 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 - F33.2) Esketamine to be administered once a week with a follow-up appointment after the 8th esketamine treatment. Dosing Spravato 84 Mg Major Depressive Disorder - Assessment: Patient reports improvement in mood and a decrease in the frequency of bad days. PHQ-9 score has decreased to 9, indicating mild depression, which is noted as one of the best scores seen in some time. - Plan: Continue current medications: Sertraline 100 mg daily, Bupropion XL 300 mg daily, and Quetiapine 200 mg nightly. Continue Spravato once a week, with a plan to gradually increase the interval between treatments (to 10 days, then 2 weeks) as tolerated and maintaining the therapeutic effect. Insomnia - Assessment: Patient reports some improvement in sleep but still experiencing difficulty. - Plan: Continue Quetiapine 200 mg nightly as it may also aid in sleep. Clarified prescription for Quetiapine, changing from 100 mg twice daily to 200 mg once nightly. Anxiety - Assessment: Patient reports improvement in anxiety management but still experiences occasional triggers, particularly at work with confrontational customers. - Plan: Continue Hydroxyzine 10 mg as needed for anxiety. Hypertension - Assessment: Patient's blood pressure is elevated during the visit. - Plan: Monitor blood pressure and consider initiating antihypertensive medication if consistently elevated in future visits. Tobacco Use - Assessment: Patient reports current smoking with no plans to quit at the moment. - Plan: Encourage smoking cessation and provide resources for quitting when the patient is ready. Follow-up - Plan: Schedule a follow-up appointment in 2 months to assess the patient's progress and make any necessary adjustments to the treatment plan. Patient can work with Ghislaine to adjust the frequency of Spravato treatments as needed, potentially increasing intervals to every 10 days or every two weeks if improvement is maintained. 01/24/2024 Generalized anxiety disorder (ICD-10 - F41.1) Major Depressive Disorder - Assessment: Patient reports improvement in mood and a decrease in the frequency of bad days. PHQ-9 score has decreased to 9, indicating mild depression, which is noted as one of the best scores seen in some time. - Plan: Continue current medications: Sertraline 100 mg daily, Bupropion XL 300 mg daily, and Quetiapine 200 mg nightly. Continue Spravato once a week, with a plan to gradually increase the interval between treatments (to 10 days, then 2 weeks) as tolerated and maintaining the therapeutic effect. Insomnia - Assessment: Patient reports some improvement in sleep but still experiencing difficulty. - Plan: Continue Quetiapine 200 mg nightly as it may also aid in sleep. Clarified prescription for Quetiapine, changing from 100 mg twice daily to 200 mg once nightly. Anxiety - Assessment: Patient reports improvement in anxiety management but still experiences occasional triggers, particularly at work with confrontational customers. - Plan: Continue Hydroxyzine 10 mg as needed for anxiety. Hypertension - Assessment: Patient's blood pressure is elevated during the visit. - Plan: Monitor blood pressure and consider initiating antihypertensive medication if consistently elevated in future visits. Tobacco Use - Assessment: Patient reports current smoking with no plans to quit at the moment. - Plan: Encourage smoking cessation and provide resources for quitting when the patient is ready. Follow-up - Plan: Schedule a follow-up appointment in 2 months to assess the patient's progress and make any necessary adjustments to the treatment plan. Patient can work with Ghislaine to adjust the frequency of Spravato treatments as needed, potentially increasing intervals to every 10 days or every two weeks if improvement is maintained. 01/18/2024 Major depressive disorder, recurrent severe without 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 - F33.2) 1. Depression - Patient rates his depression as 1/10. - Plan: a. Continue current treatment. b. Monitor progress. c. continue therapy 2. Anxiety - Patient rates his anxiety as 2/10. - Plan: a. Continue current treatment. b. Monitor progress. c. continue therapy 3. Suicidal Ideation and Self-Harm - Patient reports daily thoughts of suicide and self-harm with a plan and intent. - Plan: a. pt denied plan/intent b. continue current tx plan including medication and therapy c. Provide crisis hotline information and encourage reaching out for support. 4. Sleep Disturbance - Patient reports getting 4 to 6 hours of sleep per night. - Plan: a. Encourage good sleep hygiene practices. b. continue current tx 5. Other Symptoms - Patient denies hallucinations, delusions, or paranoia. - Normal appetite reported. - No thoughts of hurting others. - Plan: a. Continue monitoring these symptoms during future appointments. 01/18/2024 Passive suicidal ideations (ICD-10 - R45.851) 1. Depression - Patient rates his depression as 1/10. - Plan: a. Continue current treatment. b. Monitor progress. c. continue therapy 2. Anxiety - Patient rates his anxiety as 2/10. - Plan: a. Continue current treatment. b. Monitor progress. c. continue therapy 3. Suicidal Ideation and Self-Harm - Patient reports daily thoughts of suicide and self-harm with a plan and intent. - Plan: a. pt denied plan/intent b. continue current tx plan including medication and therapy c. Provide crisis hotline information and encourage reaching out for support. 4. Sleep Disturbance - Patient reports getting 4 to 6 hours of sleep per night. - Plan: a. Encourage good sleep hygiene practices. b. continue current tx 5. Other Symptoms - Patient denies hallucinations, delusions, or paranoia. - Normal appetite reported. - No thoughts of hurting others. - Plan: a. Continue monitoring these symptoms during future appointments. 01/17/2024 Major depressive disorder, recurrent severe without 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 - F33.2) 02/20/2024 Major depressive disorder, recurrent severe without 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 - F33.2) Assessment and Plan: 1. Anxiety - Acknowledge the patient's improvement in anxiety levels due to leisure activities and time away from work. - Continue utilizing coping mechanisms and openly discuss any arising concerns with therapist Adriana. Formulate a strategy for a gradual return to work to manage stress effectively. 2. Post-surgical Care for Grandmother - Note the patient's active role in supporting his grandmother post-surgery, contributing to her positive recovery trajectory. - Encourage ongoing support and care for his grandmother throughout her recuperation phase. 3. Hand Pain - The patient experiences fluctuating hand pain, potentially influenced by environmental factors. - Plan to schedule surgery following his grandmother's recovery period. Continue to monitor and address pain management needs. 4. Coping Mechanisms and Visualization - Despite challenges with visualization techniques, the patient has found success through scripted coping strategies. - Persist in the practice of coping skills and address any obstacles with therapist Adriana. Motivate the patient to identify specific areas for improvement. 5. Suicidal Thoughts - The patient reports habitual suicidal ideation without immediate intent. - Engage in discussions with therapist Adriana to evaluate the situation and consider whether acceptance or intervention is the appropriate course. Vigilantly monitor for any escalation in depressive or anxious symptoms linked to these thoughts. 6. Anger Management - The patient exhibits insightful approaches to anger management, preventing negative impacts on his daily life. - Support the continuation of radical acceptance practices and maintaining emotional equilibrium across varying scenarios. Share any challenges or concerns with therapist Adriana. Follow-up: - Client is transitioning treatment to jm Brito on 02/26. 02/20/2024 Generalized anxiety disorder (ICD-10 - F41.1) Assessment and Plan: 1. Anxiety - Acknowledge the patient's improvement in anxiety levels due to leisure activities and time away from work. - Continue utilizing coping mechanisms and openly discuss any arising concerns with jm Brito. Formulate a strategy for a gradual return to work to manage stress effectively. 2. Post-surgical Care for Grandmother - Note the patient's active role in supporting his grandmother post-surgery, contributing to her positive recovery trajectory. - Encourage ongoing support and care for his grandmother throughout her recuperation phase. 3. Hand Pain - The patient experiences fluctuating hand pain, potentially influenced by environmental factors. - Plan to schedule surgery following his grandmother's recovery period. Continue to monitor and address pain management needs. 4. Coping Mechanisms and Visualization - Despite challenges with visualization techniques, the patient has found success through scripted coping strategies. - Persist in the practice of coping skills and address any obstacles with therapist Adriana. Motivate the patient to identify specific areas for improvement. 5. Suicidal Thoughts - The patient reports habitual suicidal ideation without immediate intent. - Engage in discussions with therapist Adriana to evaluate the situation and consider whether acceptance or intervention is the appropriate course. Vigilantly monitor for any escalation in depressive or anxious symptoms linked to these thoughts. 6. Anger Management - The patient exhibits insightful approaches to anger management, preventing negative impacts on his daily life. - Support the continuation of radical acceptance practices and maintaining emotional equilibrium across varying scenarios. Share any challenges or concerns with therapist Adriana. Follow-up: - Client is transitioning treatment to therapist Adriana on 02/26. 02/14/2024 Major depressive disorder, recurrent severe without 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 - F33.2) 1. Depression - Patient rates depression as 1/10. - daily suicidal ideation. - Plan: a. Continue current treatment and monitor progress. b. continue therapy. 2. Anxiety - Patient rates anxiety as 2/10. - No thoughts of hurting others reported. - Plan: a. Continue current treatment and monitor progress. b. continue therapy 3. Psychotic Symptoms - No hallucinations, paranoia, or other delusions reported. - Plan: a. Monitor for changes or worsening of symptoms. 4. Appetite and Physical Complaints - Patient reports no changes in appetite or new physical complaints. - Plan: a. Continue to monitor appetite and physical health during future appointments. 5. Medication Management - No reported changes in medication. - Plan: a. Continue current medication regimen. b. Assess for side effects or concerns during follow-up appointments. 02/14/2024 Passive suicidal ideations (ICD-10 - R45.851) 1. Depression - Patient rates depression as 1/10. - daily suicidal ideation. - Plan: a. Continue current treatment and monitor progress. b. continue therapy. 2. Anxiety - Patient rates anxiety as 2/10. - No thoughts of hurting others reported. - Plan: a. Continue current treatment and monitor progress. b. continue therapy 3. Psychotic Symptoms - No hallucinations, paranoia, or other delusions reported. - Plan: a. Monitor for changes or worsening of symptoms. 4. Appetite and Physical Complaints - Patient reports no changes in appetite or new physical complaints. - Plan: a. Continue to monitor appetite and physical health during future appointments. 5. Medication Management - No reported changes in medication. - Plan: a. Continue current medication regimen. b. Assess for side effects or concerns during follow-up appointments. 02/13/2024 Major depressive disorder, recurrent severe without 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 - F33.2) 1. Family Dynamics and Trust Issues - Discussed maintaining current boundaries with family members. -Process thoughts about forgiveness being for self and not others. 2. Forgiveness and Relationship with Biological Mother - Maintain limited contact with the biological mother and manage interactions according to comfort levels. Discussed changing self definition of forgiveness in order to continue to let go of negative emotions. 3. General Mental Health and Coping Strategies - Continue employing current coping strategies, including distancing from toxic family members and managing confrontational situations at work. Utilizing radical acceptance as needed. Follow-up appointments are scheduled with Adriana on the and with Christina Busch once more before that appointment. 02/13/2024 Generalized anxiety disorder (ICD-10 - F41.1) 1. Family Dynamics and Trust Issues - Discussed maintaining current boundaries with family members. -Process thoughts about forgiveness being for self and not others. 2. Forgiveness and Relationship with Biological Mother - Maintain limited contact with the biological mother and manage interactions according to comfort levels. Discussed changing self definition of forgiveness in order to continue to let go of negative emotions. 3. General Mental Health and Coping Strategies - Continue employing current coping strategies, including distancing from toxic family members and managing confrontational situations at work. Utilizing radical acceptance as needed. Follow-up appointments are scheduled with Adriana on the and with Christina Busch once more before that appointment. 05/09/2024 Passive suicidal ideations (ICD-10 - R45.851) 04/29/2024 Major depressive disorder, recurrent severe without 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 - F33.2) Esketamine to be administered once a week to every two weeks with a follow-up appointment after the 8th esketamine treatment. Dosing Spravato 84 Mg 06/27/2024 Encounter for screening for depression (ICD-10 - Z13.31) 06/20/2024 Major depressive disorder, recurrent severe without 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 - F33.2) continue current treatment as prescribed by primary psychiatric care provider SPRAVATO can cause serious side effects, including: Sedation, dissociation, and respiratory depression. SPRAVATO may cause sleepiness (sedation), fainting, dizziness, spinning sensation, anxiety, or feeling disconnected from yourself, your thoughts, feelings, space and time (dissociation), and breathing problems (respiratory depression and respiratory arrest). Tell your healthcare provider right away if you feel like you cannot stay awake or if you feel like you are going to pass out. Your healthcare provider must monitor you for serious side effects for at least 2 hours after taking SPRAVATO. Your healthcare provider will decide when you are ready to leave the healthcare setting. Abuse and misuse. There is a risk for abuse and misuse with SPRAVATO, which may lead to physical and psychological dependence. Your healthcare provider should check you for signs of abuse, misuse, and dependence before and during treatment. Tell your healthcare provider if you have ever abused or been dependent on alcohol, prescription medicines, or street drugs. Your healthcare provider can tell you more about the differences between physical and psychological dependence in drug addiction. SPRAVATO Risk Evaluation and Mitigation Strategy (REMS). Because of the risks for sedation, dissociation, respiratory depression, and abuse and misuse, SPRAVATO is only available through a restricted program called the SPRAVATO Risk Evaluation and Mitigation Strategy (REMS) Program. SPRAVATO can only be administered at healthcare settings certified in the SPRAVATO REMS Program. Patients treated in outpatient healthcare settings (such as medical offices and clinics) must be enrolled in the program. Increased risk of suicidal thoughts and actions. Antidepressant medicines may increase suicidal thoughts and actions in some people 24 years of age and younger, especially within the first few months of treatment or when the dose is changed. SPRAVATO is not for use in children. Depression and other serious mental illnesses are the most important causes of suicidal thoughts and actions. Some people may have a higher risk of having suicidal thoughts or actions. These include people who have (or have a family history of) depression or a history of suicidal thoughts or actions. How can I watch for and try to prevent suicidal thoughts and actions in myself or a family member? Pay close attention to any changes, especially sudden changes, in mood, behavior, thoughts, or feelings, or if you develop suicidal thoughts or actions. Tell your healthcare provider right away if you have any new or sudden changes in mood, behavior, thoughts, or feelings, or if you develop suicidal thoughts or actions. Keep all follow-up visits with your healthcare provider as scheduled. Call your healthcare provider between visits as needed, especially if you have concerns about symptoms. Tell your healthcare provider or get emergency help right away if you or your family member have any of the following symptoms, especially if they are new, worse, or worry you: thoughts about suicide or dying new or worse depression feeling very agitated or restless trouble sleeping (insomnia) acting aggressive, being angry or violent an extreme increase in activity and talking (jeniffer) suicide attempts new or worse anxiety panic attacks new or worse irritability acting on dangerous impulses other unusual changes in behavior or mood Do not drive, operate machinery, or do anything where you need to be completely alert after taking SPRAVATO. Do not take part in these activities until the next day following a restful sleep. Increased blood pressure. SPRAVATO can cause a temporary increase in your blood pressure that may last for about 4 hours after taking a dose. Your healthcare provider will check your blood pressure before taking SPRAVATO and for at least 2 hours after you take SPRAVATO. Tell your healthcare provider right away if you get chest pain, shortness of breath, sudden severe headache, change in vision, or seizures after taking SPRAVATO. Problems with thinking clearly. Tell your healthcare provider if you have problems thinking or remembering. Bladder problems. Tell your healthcare provider if you develop trouble urinating, such as a frequent or urgent need to urinate, pain when urinating, or urinating frequently at night. The most common side effects of SPRAVATO include: feeling disconnected from yourself, your thoughts, feelings and things around you dizziness nausea feeling sleepy spinning sensation decreased feeling of sensitivity (numbness) feeling anxious lack of energy increased blood pressure vomiting feeling drunk headache feeling very happy or excited If these common side effects occur, they usually happen right after taking SPRAVATO and go away the same day. 06/20/2024 Passive suicidal ideations (ICD-10 - R45.851) 06/13/2024 Major depressive disorder, recurrent severe without 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 - F33.2) 06/13/2024 Generalized anxiety disorder (ICD-10 - F41.1) 06/06/2024 Major depressive disorder, recurrent severe without 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 - F33.2) continue current treatment as prescribed by primary psychiatric care provider. SPRAVATO can cause serious side effects, including: Sedation, dissociation, and respiratory depression. SPRAVATO may cause sleepiness (sedation), fainting, dizziness, spinning sensation, anxiety, or feeling disconnected from yourself, your thoughts, feelings, space and time (dissociation), and breathing problems (respiratory depression and respiratory arrest). Tell your healthcare provider right away if you feel like you cannot stay awake or if you feel like you are going to pass out. Your healthcare provider must monitor you for serious side effects for at least 2 hours after taking SPRAVATO. Your healthcare provider will decide when you are ready to leave the healthcare setting. Abuse and misuse. There is a risk for abuse and misuse with SPRAVATO, which may lead to physical and psychological dependence. Your healthcare provider should check you for signs of abuse, misuse, and dependence before and during treatment. Tell your healthcare provider if you have ever abused or been dependent on alcohol, prescription medicines, or street drugs. Your healthcare provider can tell you more about the differences between physical and psychological dependence in drug addiction. SPRAVATO Risk Evaluation and Mitigation Strategy (REMS). Because of the risks for sedation, dissociation, respiratory depression, and abuse and misuse, SPRAVATO is only available through a restricted program called the SPRAVATO Risk Evaluation and Mitigation Strategy (REMS) Program. SPRAVATO can only be administered at healthcare settings certified in the SPRAVATO REMS Program. Patients treated in outpatient healthcare settings (such as medical offices and clinics) must be enrolled in the program. Increased risk of suicidal thoughts and actions. Antidepressant medicines may increase suicidal thoughts and actions in some people 24 years of age and younger, especially within the first few months of treatment or when the dose is changed. SPRAVATO is not for use in children. Depression and other serious mental illnesses are the most important causes of suicidal thoughts and actions. Some people may have a higher risk of having suicidal thoughts or actions. These include people who have (or have a family history of) depression or a history of suicidal thoughts or actions. How can I watch for and try to prevent suicidal thoughts and actions in myself or a family member? Pay close attention to any changes, especially sudden changes, in mood, behavior, thoughts, or feelings, or if you develop suicidal thoughts or actions. Tell your healthcare provider right away if you have any new or sudden changes in mood, behavior, thoughts, or feelings, or if you develop suicidal thoughts or actions. Keep all follow-up visits with your healthcare provider as scheduled. Call your healthcare provider between visits as needed, especially if you have concerns about symptoms. Tell your healthcare provider or get emergency help right away if you or your family member have any of the following symptoms, especially if they are new, worse, or worry you: thoughts about suicide or dying new or worse depression feeling very agitated or restless trouble sleeping (insomnia) acting aggressive, being angry or violent an extreme increase in activity and talking (jeniffer) suicide attempts new or worse anxiety panic attacks new or worse irritability acting on dangerous impulses other unusual changes in behavior or mood Do not drive, operate machinery, or do anything where you need to be completely alert after taking SPRAVATO. Do not take part in these activities until the next day following a restful sleep. Increased blood pressure. SPRAVATO can cause a temporary increase in your blood pressure that may last for about 4 hours after taking a dose. Your healthcare provider will check your blood pressure before taking SPRAVATO and for at least 2 hours after you take SPRAVATO. Tell your healthcare provider right away if you get chest pain, shortness of breath, sudden severe headache, change in vision, or seizures after taking SPRAVATO. Problems with thinking clearly. Tell your healthcare provider if you have problems thinking or remembering. Bladder problems. Tell your healthcare provider if you develop trouble urinating, such as a frequent or urgent need to urinate, pain when urinating, or urinating frequently at night. The most common side effects of SPRAVATO include: feeling disconnected from yourself, your thoughts, feelings and things around you dizziness nausea feeling sleepy spinning sensation decreased feeling of sensitivity (numbness) feeling anxious lack of energy increased blood pressure vomiting feeling drunk headache feeling very happy or excited If these common side effects occur, they usually happen right after taking SPRAVATO and go away the same day. 06/01/2024 Major depressive disorder, recurrent severe without 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 - F33.2) 05/25/2024 Major depressive disorder, recurrent severe without 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 - F33.2) 05/23/2024 Major depressive disorder, recurrent severe without 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 - F33.2) continue current treatment as prescribed by primary psychiatric care provider. make an appt to see therapist. 07/18/2024 Major depressive disorder, recurrent severe without 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 - F33.2) continue current treatment as prescribed by primary psychiatric care provider 07/25/2024 Encounter for screening for depression (ICD-10 - Z13.31) 07/11/2024 Encounter for screening for depression (ICD-10 - Z13.31) 07/04/2024 Major depressive disorder, recurrent severe without 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 - F33.2) Continue current treatment regimen as prescribed by primary psychiatric care provider. Spravato (Esketamine) for Treatment-Resist ant Depression What is Spravato? - Spravato is a nasal spray medication that contains esketamine, a form of ketamine. It is FDA-approved for adults with treatment-resist ant depression (TRD). How does it work? - Spravato works differently from traditional antidepressants by affecting glutamate, a brain chemical involved in mood regulation. It can lead to improvements in symptoms more quickly than standard medications. How is it given? - Nasal spray, self-administere d under medical supervision. - Given in a certified healthcare setting due to possible side effects. - Initial dosing is twice a week for 4 weeks, then usually once weekly or every other week depending on your response. What to expect during treatment: - You'll stay at the clinic for at least 2 hours after each dose to monitor for side effects. - You cannot drive or operate machinery until the next day. - You should have someone available to take you home. Common side effects: - Dissociation (feeling disconnected) - Drowsiness and/or fatigue - dizziness and/or spinning sensation - Nausea and/or vomiting - Increased blood pressure (monitored before during and after treatment) - These usually improve shortly after treatment. Important reminders: - Continue taking your oral antidepressants as prescribed. - Report any unusual thoughts or behaviors, including thoughts of self-harm. - Attend all scheduled appointments for safety and to monitor progress. Is it effective? - Many patients experience significant improvement in mood, often within hours to days. However, response varies. It may take several treatments to notice full benefit. Questions? - Always reach out to your provider with any concerns or to discuss how you're feeling during treatment. There is a risk for abuse and misuse with SPRAVATO, which may lead to physical and psychological dependence. Your healthcare provider should check you for signs of abuse, misuse, and dependence before and during treatment. Tell your healthcare provider if you have ever abused or been dependent on alcohol, prescription medicines, or street drugs. SPRAVATO Risk Evaluation and Mitigation Strategy (REMS). Because of the risks for sedation, dissociation, respiratory depression, and abuse and misuse, SPRAVATO is only available through a restricted program called the SPRAVATO Risk Evaluation and Mitigation Strategy (REMS) Program. SPRAVATO can only be administered at healthcare settings certified in the SPRAVATO REMS Program. Patients treated in outpatient healthcare settings (such as medical offices and clinics) must be enrolled in the program. 1 Review patient medical records, any recent test results, last visit summary, etc Yes, Time spent 3 2 Greet patient and escort to the treatment room Yes, Time spent 2 3 Initial Obtained vital signs No 4 Prepare equipment and supplies No 5 Reviewed and documented history and medication Yes, Time spent 1 6 Evaluate patient's clinical status [relevant history/physical assessment] and determine readiness/appropr iateness of treatment Yes, Time spent 5 7 Confirm orders and review plans with staff Yes, Time spent 1 8 Ensure appropriate positioning for administration, observe patient administration, ensure patient comfort and safety Yes, Time spent 2 9 Obtained vital signs: Assess treatment tolerance No 10 Assess the patient response to treatment: Visually and verbally evaluate the patient; review treatment progress with staff [vital signs, patient tolerance, side effects, etc.] Yes, Time spent 15 11 obtained vital signs: assess treatment tolerance No 12 At the completion of observation., Reviewed treatment course and assess the patient for clinical stability/dischar ge readiness Yes, Time spent 6 13 Write a prescription or Reviewed RX for next session and submit to pharmacy No 14 Provide patient education/instruc tion/ Yes, Time spent 4 15 Coordinate home-going [that is, discharged to escorted transportation] No 16 Complete medical record documentation Yes, Time spent 12 17 cleaning of room/equipment by clinical staff No 18 complete medical record documentation; complete and submit rems patient monitoring form No I attest to the total time spent Before, During and after ecounter was (in Minutes) 51 07/18/2024 Passive suicidal ideations (ICD-10 - R45.851) 07/11/2024 Major depressive disorder, recurrent severe without 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 - F33.2) 06/27/2024 Major depressive disorder, recurrent severe without 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 - F33.2) 08/06/2024 Major depressive disorder, recurrent severe without 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 - F33.2) 08/01/2024 Major depressive disorder, recurrent severe without 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 - F33.2) continue current treatment as prescribed by primary psychiatric care provider 08/15/2024 Major depressive disorder, recurrent severe without 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 - F33.2) continue current treatment as prescribed by primary psychiatric care provider 08/01/2024 Encounter for screening for cardiovascular disorders (ICD-10 - Z13.6) 07/25/2024 Major depressive disorder, recurrent severe without 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 - F33.2) 11/22/2024 Generalized anxiety disorder (ICD-10 - F41.1) 11/22/2024 Major depressive disorder, recurrent severe without 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 - F33.2) 11/22/2024 Major depressive disorder, recurrent severe without 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 - F33.2) 11/21/2024 Major depressive disorder, recurrent severe without 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 - F33.2) Continue medication as prescribed by primary psychiatric care provider 09/03/2024 Major depressive disorder, recurrent severe without 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 - F33.2) 09/03/2024 Major depressive disorder, recurrent severe without 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 - F33.2) 08/29/2024 Major depressive disorder, recurrent severe without 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 - F33.2) continue current treatment as prescribed by primary psychiatric care provider 08/29/2024 RIA (generalized anxiety disorder) (ICD-10 - F41.1) 08/22/2024 Major depressive disorder, recurrent severe without 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 - F33.2) Esketamine to be administered once a week to every 2 to 3 weeks with a follow-up appointment after the 8th esketamine treatment. 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 Anxiety Related to Work Stress - Continue utilizing cognitive behavioral therapy techniques, including radical acceptance and jimenez mind, to manage anxiety. - Encourage reflection on self-talk and its impact on anxiety levels. - Consider incorporating additional coping mechanisms. 2. Negative Self-Talk and Dwelling on Work-Related Issues - Practice gratitude and acknowledge daily accomplishments. - Remind to give credit for the positive impact on his team. - Validate both positive and negative experiences without dismissal. 3. Stress Management and Self-Care - Continue engaging in activities that relieve stress, such as spending time with cats, reading, and practicing self-care at home. - Monitor progress in managing stress and anxiety levels in future visits. 4. Communication and Assertiveness at Work - Encourage presenting evidence and policies in a polite yet firm manner when addressing issues with colleagues. - Reinforce the importance of admitting ignorance and seeking correct answers. Follow-up: - Schedule a follow-up appointment in 1 week to assess progress in managing anxiety, self-talk, and stress. - Adjust the treatment plan as necessary based on progress and any new concerns that arise. 12/12/2023 Generalized anxiety disorder (ICD-10 - F41.1) 1. Anxiety Related to Work Stress - Continue utilizing cognitive behavioral therapy techniques, including radical acceptance and jimenez mind, to manage anxiety. - Encourage reflection on self-talk and its impact on anxiety levels. - Consider incorporating additional coping mechanisms. 2. Negative Self-Talk and Dwelling on Work-Related Issues - Practice gratitude and acknowledge daily accomplishments. - Remind to give credit for the positive impact on his team. - Validate both positive and negative experiences without dismissal. 3. Stress Management and Self-Care - Continue engaging in activities that relieve stress, such as spending time with cats, reading, and practicing self-care at home. - Monitor progress in managing stress and anxiety levels in future visits. 4. Communication and Assertiveness at Work - Encourage presenting evidence and policies in a polite yet firm manner when addressing issues with colleagues. - Reinforce the importance of admitting ignorance and seeking correct answers. Follow-up: - Schedule a follow-up appointment in 1 week to assess progress in managing anxiety, self-talk, and stress. - Adjust the treatment plan as necessary based on progress and any new concerns that arise. 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 1. Depression - Patient reports a depression rating of 2-3 out of 10. - PHQ-9: 11 - passive SI w/o plan/intent. - Plan: a. Continue monitoring depression symptoms. b. Encourage patient to engage in self-care activities. c. Consider therapy if symptoms worsen. 2. Anxiety - Patient reports an anxiety rating of 1-2 out of 10. - RIA-7: 8 - Plan: a. Continue monitoring anxiety symptoms. b. Encourage patient to practice relaxation techniques. c. Consider therapy if symptoms worsen. 3. Suicidal Ideation - Patient reports daily thoughts of self-harm but denies thoughts of harming others. - Plan: a. Assess patient's risk for self-harm. b. Ensure a safety plan is in place. c. Encourage patient to seek immediate help if thoughts intensify. d. continue therapy services. e. patient is aware of crisis hotline number and when to seek emergency services. 4. Insomnia - Patient reports getting only 1-2 hours of sleep per 24-hour period for the past couple of weeks. - Patient has tried Ambien in the past, but it stopped working. - Patient mentions trying Lunesta as well, which didn't work. - Plan: a. Encourage patient to practice good sleep hygiene and establish a consistent sleep schedule. b. Discuss potential benefits and risks of sleep medications, considering past experiences. c. Consider referral to a sleep specialist if symptoms persist. 5. Hallucinations, Delusions, and Paranoia - Patient did not report any symptoms of hallucinations, delusions, or paranoia. - Plan: Continue monitoring for any signs of psychosis during future visits. 04/11/2024 Major depressive disorder, recurrent severe without 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 - F33.2) continue current treatment as prescribed by primary psychiatric care provider. 04/11/2024 Passive suicidal ideations (ICD-10 - R45.851) 06/04/2024 Major depressive disorder, recurrent severe without 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 - F33.2) 08/21/2024 Major depressive disorder, recurrent severe without 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 - F33.2) 09/26/2024 Major depressive disorder, recurrent severe without 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 - F33.2) continue current treatment as prescribed by primary psychiatric care provider 09/26/2024 RIA (generalized anxiety disorder) (ICD-10 - F41.1) 12/12/2023 Attention-defic it hyperactivity disorder, unspecified type (ICD-10 - F90.9) 1. Anxiety Related to Work Stress - Continue utilizing cognitive behavioral therapy techniques, including radical acceptance and jimenez mind, to manage anxiety. - Encourage reflection on self-talk and its impact on anxiety levels. - Consider incorporating additional coping mechanisms. 2. Negative Self-Talk and Dwelling on Work-Related Issues - Practice gratitude and acknowledge daily accomplishments. - Remind to give credit for the positive impact on his team. - Validate both positive and negative experiences without dismissal. 3. Stress Management and Self-Care - Continue engaging in activities that relieve stress, such as spending time with cats, reading, and practicing self-care at home. - Monitor progress in managing stress and anxiety levels in future visits. 4. Communication and Assertiveness at Work - Encourage presenting evidence and policies in a polite yet firm manner when addressing issues with colleagues. - Reinforce the importance of admitting ignorance and seeking correct answers. Follow-up: - Schedule a follow-up appointment in 1 week to assess progress in managing anxiety, self-talk, and stress. - Adjust the treatment plan as necessary based on progress and any new concerns that arise. 08/29/2024 Nicotine use (ICD-10 - Z72.0) 08/01/2024 Encounter for screening for depression (ICD-10 - Z13.31) 08/15/2024 Encounter for screening for cardiovascular disorders (ICD-10 - Z13.6) 08/22/2024 RIA (generalized anxiety disorder) (ICD-10 - F41.1) Occasional anxiety bouts, less frequent and severe. Hydroxyzine used as needed for anxiety. - Continue hydroxyzine as needed for anxiety. - Monitor anxiety symptoms and adjust treatment as necessary. 07/11/2024 Generalized anxiety disorder (ICD-10 - F41.1) 07/04/2024 Encounter for screening for cardiovascular disorders (ICD-10 - Z13.6) 1 Review patient medical records, any recent test results, last visit summary, etc Yes, Time spent 3 2 Greet patient and escort to the treatment room Yes, Time spent 2 3 Initial Obtained vital signs No 4 Prepare equipment and supplies No 5 Reviewed and documented history and medication Yes, Time spent 1 6 Evaluate patient's clinical status [relevant history/physical assessment] and determine readiness/appropr iateness of treatment Yes, Time spent 5 7 Confirm orders and review plans with staff Yes, Time spent 1 8 Ensure appropriate positioning for administration, observe patient administration, ensure patient comfort and safety Yes, Time spent 2 9 Obtained vital signs: Assess treatment tolerance No 10 Assess the patient response to treatment: Visually and verbally evaluate the patient; review treatment progress with staff [vital signs, patient tolerance, side effects, etc.] Yes, Time spent 15 11 obtained vital signs: assess treatment tolerance No 12 At the completion of observation., Reviewed treatment course and assess the patient for clinical stability/dischar ge readiness Yes, Time spent 6 13 Write a prescription or Reviewed RX for next session and submit to pharmacy No 14 Provide patient education/instruc tion/ Yes, Time spent 4 15 Coordinate home-going [that is, discharged to escorted transportation] No 16 Complete medical record documentation Yes, Time spent 12 17 cleaning of room/equipment by clinical staff No 18 complete medical record documentation; complete and submit rems patient monitoring form No I attest to the total time spent Before, During and after ecounter was (in Minutes) 51 07/25/2024 Nicotine use (ICD-10 - Z72.0) 07/18/2024 Generalized anxiety disorder (ICD-10 - F41.1) 06/06/2024 Encounter for screening for cardiovascular disorders (ICD-10 - Z13.6) 06/20/2024 Encounter for screening for cardiovascular disorders (ICD-10 - Z13.6) 06/27/2024 Nicotine use (ICD-10 - Z72.0) 04/29/2024 Generalized anxiety disorder (ICD-10 - F41.1) 05/23/2024 Passive suicidal ideations (ICD-10 - R45.851) 02/13/2024 Attention-defic it hyperactivity disorder, unspecified type (ICD-10 - F90.9) 1. Family Dynamics and Trust Issues - Discussed maintaining current boundaries with family members. -Process thoughts about forgiveness being for self and not others. 2. Forgiveness and Relationship with Biological Mother - Maintain limited contact with the biological mother and manage interactions according to comfort levels. Discussed changing self definition of forgiveness in order to continue to let go of negative emotions. 3. General Mental Health and Coping Strategies - Continue employing current coping strategies, including distancing from toxic family members and managing confrontational situations at work. Utilizing radical acceptance as needed. Follow-up appointments are scheduled with Adriana on the and with Christina Busch once more before that appointment. 01/30/2024 Attention-defic it hyperactivity disorder, unspecified type (ICD-10 - F90.9) 1. Insomnia - Monitor the patient's sleep patterns and adjust the nightly routine as needed to improve sleep quality. - If sleep disturbances persist, consider conducting a sleep study, including at-home options, to further evaluate the patient's sleep issues. - Advise the patient to maintain a consistent sleep schedule and reduce caffeine consumption in the evenings to facilitate better sleep. 2. Work-related Stress and Burnout - Encourage the patient to establish boundaries and manage emotional pacing when interacting with management to prevent burnout. - Highlight the importance of self-care and the need for taking breaks, including vacations or long weekends, to focus on personal well-being and relaxation. - Discuss strategies for the patient to find balance and gratification in their role, while also protecting their mental health from the stresses of management. 3. Anxiety - Recommend practices such as savoring and mindfulness to help the patient enjoy and be present during leisure activities, reducing anxiety related to work. - Suggest sharing positive experiences with friends or family to enhance and prolong positive emotions during time off. - Continue to monitor the patient's anxiety levels and explore additional therapeutic interventions if anxiety persists or worsens, especially in relation to work transitions and the Monday scaries. Follow-up: - Schedule a follow-up appointment to assess the patient's progress in managing insomnia, work-related stress, burnout, and anxiety, and adjust the care plan as necessary. 02/05/2024 Nicotine use (ICD-10 - Z72.0) 1. Depression - Patient rates depression as 3/10. - Plan: a. Continue current treatment and monitor progress. b. Encourage engagement in activities to alleviate depressive symptoms (exercise, socializing, maintaining healthy sleep schedule). 2. Anxiety - Patient rates anxiety as 1/10. - Plan: a. Continue current treatment and monitor progress. b. Encourage practice of relaxation techniques (deep breathing exercises, mindfulness meditation). 3. Suicidal Ideation - Patient reports suicidal thoughts but denies plan or intent. - Patient denies thoughts of hurting others. - Plan: a. Continue to monitor patient's mental status closely. b. Encourage open communication about feelings and thoughts. c. Provide resources for crisis support (hotline numbers, local mental health services). 4. Sleep Disturbance - Patient reports getting 4-7 hours of sleep per night. - Plan: a. Encourage consistent sleep schedule and good sleep hygiene. b. Recommend creating a relaxing bedtime routine. c. Advise avoiding stimulants close to bedtime. d. Monitor sleep patterns and consider further evaluation if disturbances persist. 5. Medication Management - Patient reports no changes in medications. - Plan: a. Continue current medications as prescribed. b. Monitor for side effects or changes in mental/physical health. 6. Other Symptoms - Patient denies hallucinations, delusions, or paranoia. - Patient reports normal appetite. - Plan: a. Continue monitoring for any changes in symptoms. 02/06/2024 Attention-defic it hyperactivity disorder, unspecified type (ICD-10 - F90.9) 1. Lower Back Pain - Encourage the patient to adopt proper lifting techniques and to seek assistance when handling heavy objects to prevent further injury. - Recommend the use of [id number] pain relievers as necessary to manage discomfort. - Suggest engaging in gentle stretching and strengthening exercises to enhance back health and prevent future incidents. 2. ADHD - Continue with the current medication regimen prescribed for ADHD management. - Encourage the establishment and adherence to a structured daily routine to improve focus and reduce restlessness. - Recommend the exploration of relaxation techniques, including deep breathing exercises and mindfulness meditation, to aid in relaxation and concentration. 3. Depression - Continue the administration of Spravato as directed for depression treatment. - Monitor the patient's mood and medication efficacy during subsequent appointments. - Encourage participation in activities that contribute to mental well-being, such as quality time with family, reading, and engaging in hobbies like video games. 4. Family Support - Encourage open communication with family members regarding their needs and the patient's mental health during his mother's post-surgery recovery period. - Suggest looking into local resources for additional support if necessary during this time. 5. Mental Health Awareness and Stigma Reduction - Encourage the patient to persist in initiating conversations about mental health with peers, family, and healthcare professionals to foster understanding and reduce stigma. - Recommend joining support groups or online forums to connect with individuals facing similar challenges and experiences. Follow-up: - Schedule a follow-up appointment to assess the patient's progress and address any new or ongoing concerns. 05/09/2024 Nicotine use (ICD-10 - Z72.0) 12/26/2023 Attention-defic it hyperactivity disorder, unspecified type (ICD-10 - F90.9) 1. Work-related stress - Encourage the patient to engage in self-care activities during days off, such as reading or pursuing hobbies. - Discuss the importance of setting realistic expectations and goals at work. - Encourage the patient to communicate with his team and leadership about his capabilities and limitations. 2. Difficulty practicing gratitude - Continue to encourage the patient to practice gratitude by listing positive experiences and accomplishments. - Recommend setting reminders or establishing a routine to incorporate gratitude practice into daily life. 3. Self-criticism and high expectations - Discuss the importance of self-compassion and accommodating oneself based on individual strengths and limitations. - Encourage the patient to assess his energy levels daily and set realistic goals accordingly. 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 Follow-up: - Schedule a follow-up appointment for next Monday to continue addressing the patient's concerns and progress. - Monitor the patient's progress in practicing gratitude, managing work-related stress, and reducing self-criticism. 01/02/2024 Attention-defic it hyperactivity disorder, unspecified type (ICD-10 - F90.9) Assessment and Plan: 1. Occupational Stress - The patient is experiencing significant stress at work due to staffing issues and additional responsibilities. Efforts are being made to address these challenges and manage stress levels. Plan: - Continue advocating for the team and communicating with management to resolve staffing concerns. - Pace work activities and delegate tasks to prevent burnout. - Implement self-care strategies at home, including preparing easy meals and engaging in relaxing activities. 2. Carpal Tunnel Syndrome - The patient reports hand pain and numbness, affecting work and daily activities. Surgery has been delayed due to work-related staffing concerns. Plan: - Prioritize scheduling the surgery to improve quality of life and work capability. - Discuss with management about temporary work accommodations during the recovery period. 3. Depression - The patient is engaged in therapy and psychiatric care, adhering to medication regimens and undergoing Spravato treatments. Plan: - Continue with therapy and psychiatric appointments. - Support the practice of skills learned in therapy, such as noting daily positive events and practicing gratitude. - Integrate new habits into existing routines to enhance consistency, e.g., writing a positive list post-dinner. 4. Anxiety Related to Punctuality and Transportation - Recent purchase of a new vehicle to address reliability and navigation concerns has alleviated some anxiety related to punctuality and transportation. Plan: - Ensure the new vehicle is promptly repaired and registered for safe and reliable use. - Recognize the vehicle purchase as a positive step and reward for hard work. 5. Team Morale and Workplace Relationships - The patient is proactive in creating a positive work environment and strengthening team relationships, showing support and advocacy for team members. Plan: - Maintain and enhance positive relationships with team members to foster a supportive work environment and boost mental health. - Celebrate team successes and milestones through team-building activities or recognition of individual achievements. Follow-up: - Schedule a follow-up appointment in two weeks to review progress and address any ongoing concerns. 01/04/2024 Nicotine use (ICD-10 - Z72.0) 1-866-[id number] - Yes [place] Tobacco Quitline Call a Smoking Quitline The [employer] [place]'s Smoking Quitline, (3-437-10H-QUIT) Smokefree.gov, which connects you with your State's Quitline, (1-794-FJGCIID) [facility] Smoking Quitline, (3-696-LBSQJHB) 1. Depression - Patient rates depression as 1/10 (mild). - Reports having thoughts to the side often, daily. - Plan: a. Continue current treatment and monitor progress. b. Encourage engagement in activities that promote mental well-being. 2. Anxiety - Patient rates anxiety as 2/10 (mild). - Plan: a. Continue current treatment and monitor progress. b. Encourage practice of relaxation techniques and stress management. 3. Sleep Disturbance - Patient reports sleeping 5-6 hours per night. a. Encourage consistent sleep schedule and good sleep hygiene. 4. Suicidal Ideation - Patient denies any suicidal thoughts or intent. - Plan: a. Continue to monitor mental status and encourage open communication about changes in thoughts or feelings. b. continue therapy c. safety plan in place d. contact crisis hotline or go to the emergency room if a plan/intent forms or thoughts become unmanageable. 5. Homicidal Ideation - Patient denies any thoughts of harming others. - Plan: a. Continue to monitor mental status and encourage open communication about changes in thoughts or feelings. 6. Psychotic Symptoms - Patient denies any hallucinations, delusions, or paranoia. - Plan: a. Continue to monitor mental status and encourage open communication about changes in thoughts or feelings. 7. Appetite - Patient reports good appetite. - Plan: a. Continue to monitor appetite as part of overall health assessment. 01/11/2024 Passive suicidal ideations (ICD-10 - R45.851) 1. Depression - Patient rates depression as 1/10, indicating minimal depressive symptoms. - Plan: a. Continue current treatment. b. Monitor for any changes in mood. 2. Anxiety - Patient rates anxiety as 1/10, indicating minimal anxiety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 requested crisis prevention hotline number. - Currently in therapy, needs to schedule next appointment. - Sleep issues are a significant concern, to be addressed with Dr. Montalvo. - Continue monitoring mental status and progress in therapy. 05/23/2024 Other 1. Major Depressive Disorder - Patient reports depression severity at 10. - Reports passive daily suicidal ideation without plan, or intent. - No hallucinations, delusions, or paranoia reported. - Plan: a. Continue current medication regimen (no changes discussed). b. Scheduled for therapy appointment during this visit. c. Follow up as scheduled. d. patient is aware of suicide crisis hotline and when to seek emergency services. 2. Generalized Anxiety Disorder - Patient reports ongoing anxiety symptoms rating it 3 or 4 out of 10. - Not currently in therapy due to forgetfulness in scheduling. - Plan: a. Continue current medication regimen. b. Scheduled for therapy appointment during this visit. c. Follow up as scheduled. 3. Insomnia - Sleep has improved in the last week, now averaging 3-4 hours per night. - This is approximately double the previous duration, though still below normal range. - Plan: a. Continue current medication regimen (no changes discussed). b. Monitor sleep patterns and report any changes at next follow-up. c. encouraged discussing insomnia with primary psychiatric care provider. d. discussed referral to sleep study- denied. e. encouraged sleep hygiene. 4. Appetite - Appetite status reported as normal. 06/06/2024 Liat Rivera, male patient, presents for esketamine administration for treatment of major depressive disorder. Major Depressive Disorder Assessment: Patient reports current depression level of 1-2 out of 10, indicating mild depressive symptoms. He is receiving esketamine treatment for major depressive disorder. Patient denies side effects from esketamine treatment. Sleep is significantly impaired, with patient reporting 2-4 hours of sleep per night. Plan: - Administer esketamine 84 mg as scheduled - Continue current treatment regimen for major depressive disorder - Monitor for side effects of esketamine treatment - Follow up with Adriana for reintegration into therapy Anxiety Assessment: Patient reports current anxiety level of 2 out of 10, suggesting mild anxiety symptoms. Plan: - Continue monitoring anxiety symptoms - continue therapy with Adriana. Suicidal Ideation Assessment: Patient acknowledges having thoughts of suicide or self-harm, frequency not specified. No current plan or intent reported. Patient demonstrates understanding of crisis prevention plan and when to seek emergency services for suicidal ideation. Plan: - Reinforce crisis prevention plan - Ensure patient has crisis prevention hotline number - Continue to assess for suicidal ideation at follow-up appointments Insomnia Assessment: Patient reports significant sleep disturbance, getting only 2-4 hours of sleep per night. Plan: - Monitor sleep patterns and their impact on overall mental health - encourage sleep hygiene. - make an apt to address insomnia with Dr. Montalvo. The note is transcribed using speech recognition software. It is a reflection of a visit with the patient. It might have some inaccuracy, including medication names and transcribing errors, though efforts have been made to correct them. 06/20/2024 Liat Rivera presents with ongoing depression, passive suicidal ideation, and poor sleep, currently managed with medication and Spravato treatment. Major Depressive Disorder Assessment: Patient reports depression severity as 1-2 out of 10, indicating some improvement. However, daily passive suicidal ideation without plan or intent persists. Sleep disturbance is significant, with patient averaging only 2-4 hours of sleep per night. Appetite remains adequate. No anxiety reported. Current treatment includes medication management and Spravato therapy. Plan: - Continue current medications as prescribed by primary psychiatric care provider, Dr. Montalvo - Next Spravato treatment scheduled for 07-04-24 - Next therapy visit with Adriana scheduled for 06-27-2024 - Suicide crisis prevention plan in place - Patient understands crisis prevention hotline number and when to seek emergency services Insomnia Assessment: Patient reports chronic poor sleep, averaging only 2-4 hours per night. This significant sleep disturbance may be contributing to or exacerbating depressive symptoms. Plan: - Continue to monitor sleep patterns and their impact on overall mental health - Address sleep hygiene and potential interventions at next follow-up The note is transcribed using speech recognition software. It is a reflection of a visit with the patient. It might have some inaccuracy, including medication names and transcribing errors, though efforts have been made to correct them. 06/27/2024 Other Client participated in individual psychotherapy(CB T/Supportive) related to his hx of anxiety and depression. Based on today's session continued psychotherapy is recommended with no changes to treatment plan. Client presented to session well groomed and fully oriented with no risk of harm to self or others. Client verbal and engaged through out session with appropriate mood and affect. Reported upon presentation that he has been doing well since last seen on 06.13.2024. Focus of session per his request centered on his frustration with people and the impact that it has had on his anxiety and depression. Client admitted that he spends too much time in the world of shoulds versus how things are. Moreover conceded that he has unrealistic expectations of others which leads to frustration and ultimately anger. Spoke about biological mother's anger control problems and how he was affected. Stated that he still struggles with anger but not as bad as it used to be. Client provided with handout entitled [employer]. Admitted that he has a hx of making assumptoms and then taking things personal. Client receptive to session feedback. Next session in four weeks. 07/04/2024 Liat Jane is a male patient with a history of depression and anxiety, presenting for routine follow-up with primary complaints of chronic insomnia. InsomniaAssessme nt: Patient reports chronic difficulty sleeping, with an average of 2-3 hours of sleep per night over the past week. This sleep disturbance is longstanding and not a recent development. Plan:- Assess current sleep hygiene practices and provide education on sleep hygiene techniques.- Follow up on sleep patterns at next appointment and discuss concerns with primary psychiatric provider. DepressionAssess ment: Patient rates current depression at 2/10, indicating mild symptoms. No suicidal ideation reported. Appetite is normal. Patient is followed by Dr. Montalvo for ongoing management.Plan: - Continue current medication regimen .- Monitor for changes in mood or depressive symptoms.- Follow up with Dr. Montalvo as scheduled for ongoing management. AnxietyAssessmen t: Patient rates current anxiety at 1/10, suggesting minimal anxiety symptoms at present.Plan:- Continue current treatment approach.- Encourage patient to report any increase in anxiety symptoms. 1 Review patient medical records, any recent test results, last visit summary, etc Yes, Time spent 3 2 Greet patient and escort to the treatment room Yes, Time spent 2 3 Initial Obtained vital signs No 4 Prepare equipment and supplies No 5 Reviewed and documented history and medication Yes, Time spent 1 6 Evaluate patient's clinical status [relevant history/physical assessment] and determine readiness/appropr iateness of treatment Yes, Time spent 5 7 Confirm orders and review plans with staff Yes, Time spent 1 8 Ensure appropriate positioning for administration, observe patient administration, ensure patient comfort and safety Yes, Time spent 2 9 Obtained vital signs: Assess treatment tolerance No 10 Assess the patient response to treatment: Visually and verbally evaluate the patient; review treatment progress with staff [vital signs, patient tolerance, side effects, etc.] Yes, Time spent 15 11 obtained vital signs: assess treatment tolerance No 12 At the completion of observation., Reviewed treatment course and assess the patient for clinical stability/dischar ge readiness Yes, Time spent 6 13 Write a prescription or Reviewed RX for next session and submit to pharmacy No 14 Provide patient education/instruc tion/ Yes, Time spent 4 15 Coordinate home-going [that is, discharged to escorted transportation] No 16 Complete medical record documentation Yes, Time spent 12 17 cleaning of room/equipment by clinical staff No 18 complete medical record documentation; complete and submit rems patient monitoring form No I attest to the total time spent Before, During and after ecounter was (in Minutes) 51 07/11/2024 Other Client participated in individual psychotherapy(CB T/Supportive) related to his hx of anxiety and depression. Based on today's session continued psychotherapy is recommended with no changes to treatment plan. Client presented to session well groomed and fully oriented with no risk of harm to self or others. Client verbal and engaged through out session with appropriate mood and affect. Reported upon presentation that he has been doing all right since last seen on 06.27.2024. Apologetic for being tardy to session due to having car problems. Initially stated being unsure what he wanted to address today. Noted that he been more aware of when he is in the world of shoulds versus are. Focus of session on his hx of poor anger control and how it has impacted his life. Admitted that he has used anger as a cover up emotions to unwanted and uncomfortable emotions. Feeling invalidated and helpless to uncomfortable emotions identifed by client. Moreover has been mindful of not wanting to be come like his mother and her anger issues. Client receptive to session feedback. Next session in two weeks. 07/18/2024 Liat Rivera, male patient, presents for Spravato administration for depression, reporting passive suicidal ideation without plan or intent and chronic insomnia. Major Depressive Disorder Assessment: Patient reports depression rated at 2 out of 10. He is currently undergoing Spravato treatment for depression management. Patient expresses passive suicidal ideation without plan or intent, indicating ongoing depressive symptoms despite treatment. He demonstrates awareness of crisis prevention resources, including the [employer] hotline and a suicide prevention crisis plan. Plan: - Administer scheduled Spravato treatment on 08/01/2024 - Continue medications as prescribed by primary psychiatric care provider, Dr. Montalvo - Patient expressed understanding of risks and benefits of Spravato treatment - Patient instructed not to drive after Spravato administration - Follow-up therapy appointment scheduled with Adriana on 07/25/2024 Anxiety Assessment: Patient reports anxiety rated at 2 out of 10, suggesting mild anxiety symptoms concurrent with depressive disorder. Plan: - Continue current medication regimen as prescribed by Dr. Montalvo Chronic Insomnia Assessment: Patient reports chronic insomnia, currently getting approximately 2 to 4 hours of sleep per night. Plan: - Continue current medication regimen as prescribed by Dr. Montalvo The note is transcribed using speech recognition software. It is a reflection of a visit with the patient. It might have some inaccuracy, including medication names and transcribing errors, though efforts have been made to correct them. 07/25/2024 Other Client participated in individual psychotherapy(CB T/Supportive) related to his hx of anxiety and depression. Based on today's session continued psychotherapy is recommended with no changes to treatment plan. Client presented to session well groomed and fully oriented with no risk of harm to self or others. Client verbal and engaged through out session with appropriate mood and affect. Reported upon presentation that he has been doing all right since last seen on 07.11.2024. Added that work has been going all right although did express concern over how an ex co-worker is being treated at his new employment. Focus of session continued to address his anger and relationship with mother while growing up and the impact on his depression and anxiety. Client receptive to session feedback. Next session in two weeks. 08/01/2024 Other Major Depressive Disorder Assessment: Patient reports depression severity as 1 out of 10. PHQ-9 score is 10. Patient experiences adequate appetite and sleeps 4 hours per night. Passive suicidal ideation is present without plan or intent. Patient demonstrates understanding of crisis prevention strategies and has a suicide safety plan in place. Plan: - Continue Spravato administration - Continue medications as prescribed by primary psychiatric care provider, Dr. Montalvo - Reinforce crisis prevention strategies and suicide safety plan - Monitor for changes in suicidal ideation - Follow up as scheduled on 08/15/2024 Generalized Anxiety Disorder Assessment: Patient reports acute anxiety. RIA-7 score is 6, indicating mild anxiety symptoms. Plan: - Continue current medication regimen - Monitor anxiety symptoms and response to treatment The note is transcribed using speech recognition software. It is a reflection of a visit with the patient. It might have some inaccuracy, including medication names and transcribing errors, though efforts have been made to correct them. 08/15/2024 Other Depression Assessment: Patient reports depression as well-controlled, rating it as 1 out of 10. No suicidal ideation or intent reported. Sleep has improved, with patient getting 5-6 hours per night. Appetite is normal. No side effects from current medications reported. Plan: - Continue current medications as prescribed by Dr. Montalvo - continue medications as prescribed. - Patient educated on 988 crisis prevention hotline - Follow up as scheduled Anxiety Assessment: Patient reports anxiety as well-controlled, rating it as 1 out of 10. No hallucinations, delusions, or paranoia reported. Plan: - Continue current medications as prescribed by Dr. Montalvo - Follow up as scheduled The note is transcribed using speech recognition software. It is a reflection of a visit with the patient. It might have some inaccuracy, including medication names and transcribing errors, though efforts have been made to correct them. 08/22/2024 Other Non-restorative sleep and waking early. Potential sleep apnea due to symptoms. - Consider a home sleep study to assess for sleep apnea. - Evaluate insurance coverage for sleep study. - Discuss follow-up based on sleep study results. 08/29/2024 Other He presents for Spravato administration for treatment of depression, reporting mild depressive and anxiety symptoms with passive suicidal ideation. Major Depressive Disorder Assessment: Patient reports mild depressive symptoms, rating depression as 1 out of 10. PHQ-9 score is 7, indicating mild depression. Patient denies active suicidal ideation but reports passive suicidal ideation without plan or intent. Safety plan is in place, and patient understands crisis resources. Sleep is poor, getting 4-5 hours per night. Appetite is reported as normal. Patient is currently receiving Spravato treatment for depression management. Plan: - Continue Spravato treatment as scheduled - Next Spravato treatment scheduled for 09/20/2024 - Continue medications as prescribed by Dr. Montalvo - Maintain safety plan - Utilize 988 crisis hotline if needed - continue therapy Anxiety Assessment: Patient reports mild anxiety symptoms, rating anxiety as 2 out of 10. RIA-7 score is 3, indicating minimal anxiety. Plan: - Continue current management approach - Monitor anxiety symptoms at follow-up appointments Insomnia Assessment: Patient reports poor sleep, getting only 4-5 hours per night. Plan: - continue medications as prescribed by Dr. Montalvo - continue therapy - encourage sleep hygiene. The note is transcribed using speech recognition software. It is a reflection of a visit with the patient. It might have some inaccuracy, including medication names and transcribing errors, though efforts have been made to correct them. 09/19/2024 Other 1. Major Depressive Disorder - Patient rates depression at -2/10. - Patient reports significant improvement in depressive symptoms. - Plan: a. Administer Spravato as scheduled. b. Continue current medication regimen. c. Next provisional treatment scheduled for 09-26-2024. d. Patient instructed not to drive after Spravato administration. 2. Anxiety - Patient rates anxiety at 1/10. - Patient reports improvement in anxiety symptoms. - Plan: a. Continue current treatment approach. 3. Suicidal Ideation - Patient denies current suicidal ideation. 4. Psychotic Symptoms - Patient denies hallucinations, delusions, or paranoia. 5. Sleep - Patient reports 5-6 hours of sleep per night. 6. Appetite - Patient reports normal appetite. 7. Medication Management - Patient reports no medication side effects. - Plan: a. Continue current medication regimen. 8. Spravato Administration - Plan: a. Administer Spravato as scheduled. b. Next provisional treatment scheduled for 09-26-2024. c. Patient instructed not to drive after Spravato administration. 09/26/2024 Other 1. Major Depressive Disorder - Patient rates depression at 1-2/10, indicating significant improvement. - Patient denies suicidal ideation, hallucinations, delusions, or paranoia. - Plan: a. Administer Spravato as scheduled. b. Continue medications as prescribed by Dr. Montalvo. c. Schedule next Spravato treatment for September 26, 2024. d. Instruct patient not to drive after Spravato administration. 2. Anxiety - Patient rates anxiety at 2/10, suggesting good control of symptoms. - No reported side effects from current medications. - Plan: a. Continue medications as prescribed by Dr. Montalvo. 3. Sleep - Patient reports 5 hours of sleep per night, pattern appears normal. 4. Medication Management - Patient expressed understanding of risks and benefits of Spravato treatment. - Plan: a. Continue medications as prescribed by Dr. Montalvo b. Administer Spravato as scheduled. 10/10/2024 Other 1. Depression and Anxiety - Patient reports mild depressive and anxiety symptoms - RIA-7 score: 4 - PHQ-9 score: 6 - Patient rates depression as 1/10 and anxiety as 1/10 - Denies suicidal ideation, thoughts of self-harm or harm to others - No hallucinations, delusions, or paranoia - Sleep reported as 4-5 hours per night - Normal appetite - No medication side effects or recent changes reported - Plan: a. Administer Spravato as scheduled b. Continue current medications as prescribed by Dr. Montalvo c. Schedule next Spravato treatment for 10-31-2024 d. Instruct patient not to drive after Spravato administration 10/31/2024 Other Buck presents with ongoing depression and anxiety, reporting current RIA-7 and PHQ-9 scores of 6 each. Depression and Anxiety Assessment: Patient reports ongoing depression and anxiety symptoms. Current RIA-7 and PHQ-9 scores are both 6, indicating mild symptoms. Patient denies suicidal ideation, self-harm thoughts, or thoughts of harming others. No hallucinations, delusions, or paranoia reported. Sleep is approximately 6 hours per night, and appetite is normal. Patient denies any effects from current medications and reports no new medications or adjustments since the last visit. Plan: - Continue medications as prescribed by primary psychiatric care provider, Doctor Montalvo - Follow-up appointment scheduled for November 21, 2024 11/21/2024 Other 1. Depression and Anxiety - Patient rates depression at 1/10. - Patient rates anxiety at 3/10. - Sleep reduced at approximately 4 hours last night. - Appetite reported as normal. - Denies suicidal ideation, self-harm thoughts, or thoughts of harming others. - No hallucinations, delusions, or paranoia reported. - Plan: a. Administer Spravato as scheduled. b. Patient expressed understanding of risks and benefits. c. Instructed patient not to drive after administration. d. Next Spravato treatment scheduled for December 12, 2024. Plan Of Treatment Next Appt Details Provider Name:Brandon Shoemaker, 12/12/2024 10:00:00 AM, [address], [facility] [address], [place], [address], Provider Name:Brandon Shoemaker, 01/02/2025 10:00:00 AM, [address], [place] [address], [place], [address], Provider Name:Brandon Shoemaker, 01/23/2025 10:00:00 AM, [address], [place] [address], [place], [address], Provider Name:Brandon Shoemaker, 02/13/2025 10:00:00 AM, [address], [address], [place], [address], Insurance Providers Payer Name Payer Address Payer Phone Subscriber Number Group Number Insured Name Patient Relationship to Insured Coverage Start Date Coverage End Date [place] [address] [address] [place] [id number] [id number] Self - patient is the insured Medications Administered Medication Instructions Date of Administration Dosage Notes Spravato (84 MG Dose) 10/06/2023 84 mg Spravato (84 MG Dose) 10/12/2023 84 mg Spravato (84 MG Dose) 10/19/2023 84 mg Spravato (84 MG Dose) 10/26/2023 84 mg Spravato (84 MG Dose) 11/02/2023 84 mg Spravato (84 MG Dose) 11/09/2023 84 mg Spravato (84 MG Dose) 11/16/2023 84 mg Spravato (84 MG Dose) 11/23/2023 84 mg Spravato (84 MG Dose) 11/30/2023 84 mg Spravato (84 MG Dose) 12/07/2023 84 mg Spravato (84 MG Dose) 12/14/2023 84 mg Spravato (84 MG Dose) 12/21/2023 84 mg Spravato (84 MG Dose) 12/28/2023 84 mg Spravato (84 MG Dose) 01/04/2024 84 mg Spravato (84 MG Dose) 01/11/2024 84 mg Spravato (84 MG Dose) 01/18/2024 84 mg Spravato (84 MG Dose) 01/25/2024 84 mg Spravato (84 MG Dose) 02/05/2024 84 mg Spravato (84 MG Dose) 02/14/2024 84 mg Spravato (84 MG Dose) 02/26/2024 84 mg Spravato (84 MG Dose) 03/14/2024 84 mg Spravato (84 MG Dose) 03/25/2024 84 mg Spravato (84 MG Dose) 04/11/2024 84 mg Spravato (84 MG Dose) 04/23/2024 84 mg Spravato (84 MG Dose) 05/09/2024 84 mg Spravato (84 MG Dose) 05/23/2024 84 mg Spravato (84 MG Dose) 06/06/2024 84 mg Spravato (84 MG Dose) 06/20/2024 84 mg Spravato (84 MG Dose) 07/04/2024 84 mg Spravato (84 MG Dose) 07/18/2024 84 mg Spravato (84 MG Dose) 08/01/2024 84 mg Spravato (84 MG Dose) 08/15/2024 84 mg Spravato (84 MG Dose) 08/29/2024 84 mg Spravato (84 MG Dose) 09/19/2024 28 mg Spravato (84 MG Dose) 09/26/2024 84 mg Spravato (84 MG Dose) 10/10/2024 84 mg Spravato (84 MG Dose) 10/31/2024 84 mg Spravato (84 MG Dose) 11/21/2024 84 mg Medical (General) History Medical History History ICD Code Problems: Attention deficit hyperactivit y disorder Generalized anxiety disorder Severe recurrent major depression withou t psychotic features Suicidal thoughts Vitamin D deficiency abdominal aortic aneurysm: No undefined atrial fibrillation: No chronic fatigue syndrome: No essential tremor: No hyperlipidemia: No hypertension: No Parkinson's disease: No restless leg syndrome: No stroke: No subdural hematoma: No type 1 diabetes mellitus: No type 2 diabetes mellitus: No vitamin B12 deficiency: No vitamin D deficiency: No
--- OUTSIDE RECORDS SUMMARY | 2024-12-05 06:24 | XMS_ITS | Clinical Summary ---
Author Organization [facility] Address [address] [place] [id number] Care Team Providers Care Spot Welder Name Role Phone None, Provider MD Primary [...] complete this topic Insurance R Care Teams Spot Welder Relationship Specialty Start Date End Date None, Provider, PCP - General 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
--- OUTSIDE RECORDS SUMMARY | 2024-12-05 06:24 | XMS_ITS ---
Author Organization Unknown ENCOUNTERS Encounter Performer Location Date Diagnosis Diagnosis Status Outpatient Stephanie Espinosa [id number] [place] [address] [id number] G[facility] Outpatient [facility] [address] [place] [id number] [facility] Outpatient [id number] [place] [address] [id number] GARY *Note: Encounters from your own facility or health system may be excluded. Allergies, Adverse Reactions, Alerts Allergen Type Severity Identification Date lactose drug allergy 2 [id number] Medications Name Date Quantity Days Supplied [facility] Number
[2024-12-05 06:46] VITALS: BMI 26.8
[2024-12-05 06:47] VITALS: BP 107/87; PULSE 76; RESP 16; TEMP 36.6; O2SAT 100
--- NOTE | 2024-12-05 06:54 | P.OP_ITS ---
Procedure Note - Detailed Date of Procedure 12/05/24 Pre-op Diagnosis Right Carpal and cubital Tunnel Syndrome Post-op Diagnosis Same Procedure Performed right ectr and CuTR Surgeon Judy Borden MD Welfare Administrator Stephanie Espinosa PA-C Anesthesia MAC Description of Procedure INFORMED CONSENT: The patient was seen and examined and marked in the pre-op area.? The patient signed the consent form. PROCEDURE IN DETAIL:The patient taken back to OR on the stretcher in supine position. Time out performed with anesthesia, surgeon and staff agreeing on patient's name site and surgery to be performed SCDs were placed on the lower extremities and inflated. A tourniquet was placed on {right} upper extremity and antibiotics given IV After anesthesia administered sedation I injected {10}cc 1%lido with epi and 0.5% marcaine plain at the operative sites The?{right upper extremity}?was prepped and draped in sterile fashion the??{right upper extremity} was? exsanguinated with Esmarch bandage and tourniquet inflated to 250mmHg I made a transverse incision in the {right} volar distal wrist crease through skin and dermis with 15 blade scalpel.? Littler scissors spread down to antebrachial fascia. A small incision was made in antebrachial fascia allowing access to Carpal tunnel. I proceeded with sequential dilation staying in line with the ring finger and hugging the hook of the hamate.? I then used the synovial elevator to free any adhesions from the underside of the transverse carpal ligament. Next I was able to insert the Microaire endoscopic carpal tunnel device with direct visualization of the transverse fibers on the monitor and proceeded with complete segmental retrograde release of the ligament in its entirety.? I irrigated with normal saline and closed with 4-0 monocryl for dermis and subcuticular closure. I next proceeded with making a longitudinal incision between two heads for flexor carpi ulnaris at end of {right} cubital tunnel with 15 blade scalpel.? Littler scissors were used to spread down to FCU fascia.? An incision was made in FCU fascia and ulnar nerve identified exiting cubital tunnel.? I proceeded with complete retrograde release of the cubital tunnel including 7cm proximal for the intermuscular septum.? The nerve appeared healthy with visible vaso nervorum.? There was no subluxation on full elbow range of motion. ? I irrigated with normal saline and closure with 3-0 vicryl and 4-0 monocryl. The incisions were covered with Dermabond then 4x4s, cory, and a posterior elbow and volar wrist splint for patient safety, security and comfort and secured with royer bandages after the tourniquet was let down noting the hand was warm and well perfused.? Patient awaken from anesthesia and transferred to recovery in stable condition Complications - none EBL- 1cc Disposition - home in stable condition Stephanie Espinosa PA-C was essential for positioning, retraction, closure and dressing placement [facility] Billing Surgery - Charge Forward: Surgery Billing ([id number] same for yary hawkins adding )
--- NOTE | 2024-12-05 06:54 | WPDHPUPDATE1 ---
History and Physical Update Update Date/Time: 12/05/24 06:54 Patient seen and examined in pre-operative holding area. No interval change in medical history or symptoms. Patient recalls previous discussion of benefits and alternatives to procedure. Continues to desire to proceed with right endoscopic possible open carpal tunnel release and right cubital tunnel release. Reviewed procedure, post-op expectations and risks including but not limited to bleeding, infection, injury to tendon/nerve/vessel, decreased hand function, stiffness, RSD, no change or worsening of symptoms. I discussed the possible use of assistants and their participation in the case. Patient stated understanding and signed the consent form wishing to proceed.
--- NOTE | 2024-12-05 07:14 | WPDANESEPPF ---
Anes - Initial Pre Proc Eval Procedure: Operation Date: 12/05/24 08:00 Proposed Procedures p Right Endoscopic Carpal Tunnel Release, Possible Open Carpal Tunnel Release - Judy Borden MD Date/Time: 12/05/24 07:14 Surgeon: Judy Borden MD Pre Op Diagnosis: Right Carpal Tunnel Syndrome Patient Data Age: 29 Gender: M Height: 1.73 m Weight: 80.1 kg Last Vital Signs Temp 97.9 F 12/05/24 06:47 Pulse 76 12/05/24 06:47 Resp 16 12/05/24 06:47 BP 107/87 12/05/24 06:47 Pulse Ox 100 12/05/24 06:47 O2 Del Method Room Air 12/05/24 06:47 Allergies Allergy/AdvReac Type Severity Reaction Status Date / Time lactose AdvReac Mild Other Verified 12/05/24 06:37 Shrimp Allergy Mild Hives / Uncoded 11/26/24 10:08 Red Face SHELLFISH Allergy Hives / Uncoded 11/26/24 10:08 Red Face Home Medications ?Medication ?Instructions ?Recorded ?Confirmed ?Type hydroxyzine HCl 10 mg tablet 10 mg PO DAILY PRN itching 07/18/23 12/05/24 History quetiapine 100 mg tablet 100 mg PO QHS 07/18/23 12/05/24 History sertraline 100 mg tablet 100 mg PO DAILY 07/18/23 12/05/24 History bupropion HCl 300 mg 24 hr tablet, 300 mg PO QAM 01/17/24 12/05/24 History extended release omeprazole 40 mg capsule,delayed 40 mg PO DAILY 90 days #90 caps 01/17/24 12/05/24 Rx release hydrocodone 5 mg-acetaminophen 325 1 tablet PO Q6H PRN pain #8 tabs 12/05/24 Rx mg tablet Patient hx anesthesia problems: none Family hx anesthesia problems: none Results Review: All pre-operative results and documents have been reviewed as part of the pre-operative evaluation. [facility] Past Medical History Medical History Depression Bipolar 2 disorder Anxiety Chronic GERD Primary insomnia Surgical History Surgical History No history of previous surgery Family History Family History Grandparent Diabetes mellitus Other Family history of elevated blood lipids Family history of rheumatoid arthritis Social History Social History (Updated 11/26/24 @ 10:10 by Arelis Powers) Social History: Caffeine- soda 01/17/24 somewhat confident with medical forms. Years smoked: 3 Smoking status: Current every day smoker Tobacco type: cigarettes Second hand tobacco smoke exposure: Yes Alcohol intake: never Substance use: never Substance use type: does not use Do You Feel Safe in your Home?: Yes Lack of Transportation: No Lack of Food: Never True Current Housing: I Have Housing Concerned About Future Housing: No Difficulty Paying Gas/Electric Bills: No Difficulty Paying for Meds: No Currently Unemployed: No Education: High School Diploma/GED Difficulty w/ Childcare or Family Care: No Living arrangements: with family Occupation/Education: occupation Gender identity (if verbalized by the patient): Male Sexual Orientation (if Verbalized by the Patient): Straight or Heterosexual Spiritual care concerns: No Agree to blood products: Yes Anes - Eval Final PreProcedure Day of Procedure 12/05/24 07:14 Heart: regular rate and rhythm Lungs: clear to auscultation Airway: Mallampati scale class II Neurological: alert and oriented Last oral intake: >/= 8 hours ASA classification: II Anesthetic plan: proceed Anesthesia type and monitoring: monitored anesthesia care Results Review: All pre-operative results and documents have been reviewed as part of the pre-operative evaluation. Informed Consent: The patient's anesthetic plan and its attendant risks and benefits were discussed with the patient/family/POA. Questions were solicited and answers provided to the satisfaction of the patient/family/POA.
[2024-12-05] MEDS: ACETAMINOPHEN 500 MG TABLET 1000 MG PO (07:26)
[2024-12-05] MEDS: LACTATED RINGERS 1,000 ML 30 ML IV CONT (07:27)
[2024-12-05] MEDS: ceFAZolin SODIUM 2 GM/20 ML SW SYRINGE IV PUSH (07:57)
[2024-12-05] MEDS: LIDO 1%/EPINEPHRINE 1:100,000 20 ML VIAL 10 ML INFILTRATE (08:11)
[2024-12-05] MEDS: BUPivacaine HCL 0.5% 10 ML AMP INFILTRATE (08:13)
[2024-12-05 08:25] VITALS: BP 135/77; PULSE 85; RESP 18; O2SAT 97
[2024-12-05 08:40] VITALS: BP 107/66; PULSE 89; RESP 18; O2SAT 98
[2024-12-05 08:52] VITALS: BP 120/72; PULSE 77; RESP 18; O2SAT 100
== END 2024-12-05 09:01 | disposition home or self-care (01) ==
LOC: ASC 06:21
PROVIDERS: PCP Nurse Practitioner Family; Visit Provider Plastic Surgery
PROC: 01N54ZZ Release Median Nerve, Percutaneous Endoscopic Approach (ICD-10-PCS; CPT 29848; principal; 2024-12-05 08:00)
DX: G56.01 Carpal tunnel syndrome, right upper limb (principal); G56.21 Lesion of ulnar nerve, right upper limb
CPT/HCPCS: 29848; 64718